=== PATIENT | male | born 1965 | race Caucasian/White ===

== ENCOUNTER → 2017-07-11 | Outpatient (CLI) | payer OTHER ==
[~2017-07-11] MED LIST: ALBUAER2; ATOR10TA88; LSN25; [UNRECOGNIZED DRUG - CODE]
== END | disposition home or self-care (01) ==
LOC: C.LAB 00:11
DX: Z02.83 Encounter for blood-alcohol and blood-drug test (principal)

== ENCOUNTER 2024-05-16 22:38 | Inpatient (IN) ==
--- OUTSIDE RECORDS SUMMARY | 2024-05-16 22:44 | External Medical Summary | Summary of Care ---
Author Name Unknown Organization [facility] Address [address] [place] [address] Phone [phone] Care Team Providers Care Hospital Account Liaison Name Role Phone Unavailable Primary Care Provider Unavailabl e Reason for Visit * Reason Comments eRx-Medication Refill Encounter Details Date Type Department Care Team (Late st Contact Info) Description 05/12/2024 Refill Pharmacy, [address] [address] Puneet Martinez, DO [address] [place] [address] Type 2 diabetes mellitus with hemoglobin A1c goal of less than 7.0% ([facility])* Allergies Active Allergy Reactions Criticality Noted Date Comments Penicillin V 09/11/2006 documented as of this encounter (statuses as of 05/12/2024) Medications Medication Sig Dispensed Refills Start Date End Date Status aspirin enteric coated 81 MG TBECIndications:Type 2 diabetes mellitus with hemoglobin A1c goal of less than 7.0% (HCC) Take 1 Tablet by mouth in the morning. 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 100 Each 11 1 Active OneTouch Ultra Blue In Vitro Strip (Glucose Blood)Indications:Ty pe 2 diabetes mellitus with both eyes affected by severe nonproliferative retinopathy and macular edema, without long-term current use of insulin ([facility]) Use as directed twice daily for glucose testing 100 Strip 3 1 Active FLUoxetine HCl 10 MG Oral Capsule (PROzac)Indications: Adjustment disorder with mixed anxiety and depressed mood Take 1 Capsule by mouth in the morning. 30 Capsule 11 3 Active Insulin Glargine Solostar 100 UNIT/ML Subcutaneous Solution Pen-injector (Lantus SoloStar)Indications :Type 2 diabetes mellitus with diabetic dermatitis, with long-term current use of insulin ([facility]) Inject 52 Units under the skin in the morning. Increase as directed by [facility] until blood glucose <150. Max dose 82 units daily. 75 mL 3 3 Active amLODIPine Besylate 5 MG Oral Tablet (Norvasc)Indications :HTN, goal below 130/80 TAKE 1 TABLET BY MOUTH IN THE MORNING. 90 Tablet 2 3 Active Albuterol Sulfate HFA 108 (90 Base) MCG/ACT Inhalation Aerosol SolutionIndications: Mild intermittent asthma without complication USE 2 INHALATIONS BY MOUTH EVERY 4 HOURS NEEDED FOR COUGH OR WHEEZING 51 g 2 4 Active Atorvastatin Calcium 10 MG Oral Tablet (Lipitor)Indications :Dyslipidemia, goal LDL below 100 Take 2 Tablets by mouth in the morning. 4 Active metFORMIN HCl 1000 MG Oral Tablet (Glucophage) TAKE 1 TABLET BY MOUTH TWICE DAILY WITH MORNING AND EVENING MEALS 180 Tablet 3 4 Active Vitamin D3 25 MCG (1000 UT) Oral Capsule (Cholecalciferol)Ind ications:Vitamin D deficiency Take 1 Capsule by mouth in the morning. 4 Active hydroCHLOROthiazide 25 MG Oral Tablet (Hydrodiuril)Indicat ions:HTN, goal below 130/80 TAKE 1 TABLET BY MOUTH DAILY 90 Tablet 1 4 Active Lisinopril 40 MG Oral TabletIndications:HT N, goal below 130/80 TAKE 1 TABLET BY MOUTH DAILY 90 Tablet 1 4 Active Ozempic (1 MG/DOSE) 4 MG/3ML Subcutaneous Solution Pen-injector (Semaglutide (1 MG/DOSE))Indications :Type 2 diabetes mellitus with hemoglobin A1c goal of less than 7.0% (HCC) INJECT 1 mg UNDER THE SKIN ONCE A WEEK 9 mL 4 4 Active Ozempic (1 MG/DOSE) 4 MG/3ML Subcutaneous Solution Pen-injector (Semaglutide (1 MG/DOSE))Indications :Type 2 diabetes mellitus with hemoglobin A1c goal of less than 7.0% (HCC) Inject 1 mg under the skin once a week. 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 Mild obstructive sleep apnea 03/10/2014 Overview: CPAP 9 cwp 05/2014 -- CPAP 8-15 cwp 03/18/14 -- CPAP 5-15 cwp NPSG AHI 6.5 HST AHI 9.0 [facility] Dermatophytosis of groin 12/12/2010 Mild intermittent asthma without complication Overview: Per Provider Protocol. Psoriasis 03/05/2010 Severe obesity with body mas s index (BMI) of 35.0 to 39.9 with serious comorbidity 01/29/2010 Overview: Per Obesity Taxonomy ICD-10 update of inactive diagnosis DYSLIPIDEMIA, GOAL LDL BELOW 100 10/17/2009 Overview: Per Lipid Taxonomy. 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 ICD-10 update of inactive term Other specified gastritis without mention of hem orrhage 05/03/2008 Overview: mild gastric irritation and benign gastric polyp Other allergic rhinitis 04/05/2008 Overview: ICD-10 update of inactive term ADVANCE DIRECTIVE INFORMATION 12/11/2006 Overview: Pt given info. documented as of this encounter (statuses as of 05/12/2024) Resolved Problems Problem Noted Date Diagnosed Date Resolved Date HTN, GOAL BELOW 140/80 06/22/201202/07 Overview: Per HTN Protocol #27. Asthma with severity to be determined 04/26/2010 12/11/2011 Overview: Per Asthma Taxonomy ICD-10 update of inactive term HTN, GOAL BELOW 130/80 11/29/200906/25 Overview: Per HTN Taxonomy. OBESITY, UNSPECIFIED 12/16/2006 010 Overview: Per Obesity Taxonomy Tobacco use disorder 12/11/2006 007 Ulcer of lower limb 09/11/2006 10/16/20 20 Type 2 diabetes mellitus wit h hemoglobin A1c goal of less than 7.0% 09/11/2006 08/31/2009 Overview: Per Diabetes Taxonomy. ICD-10 update of inactive term HTN, goal below 140/90 09/11/200611/29 Overview: Per HTN Taxonomy. PURE HYPERCHOLESTEROLEM 09/11/200610/03 Overview: Per Lipid Taxonomy. EXTRINSIC ASTHMA, UNSPEC 09/11/2006 documented as of this encounter (statuses as of 05/12/2024) Immunizations Name Administration Dates Next Due H1N1 2009 Influenza, IM 12/06/2009 Hepatitis B, 20+ yrs 10/16/2020,08/07/2017,07/03 Pneumococcal Conjugate Vacc, 13 Valent (Prevnar) 06/15/2018 Pneumococcal Polysaccharide PPV23 (Pneumovax) 10/09/2004 Seasonal Influenza, PF, 6 M & above, IM , (FluLaval or Fluzone) 09/01/2023,07/23/2022,10/15/2021,10/16,09/09/2019,12/04/2018,10/07/2017 Seasonal Influenza, Quadriva lent, No Preserve, IM 08/15/2016 Seasonal Influenza, Split, I IV3, With Preserve, Inj 07/20/2015,08/05/2014,08/03/2013,07/03,07/30/2011,08/24/2010,07/29/2009 ,08/08/2008,09/08/2007,09/03/2006 TD - Tetanus/Diptheria (ADULT) 08/16/2006 TDAP (age 10 and older)(Boostrix) 11/29/2022,02/2012 documented as of this encounter Social History Tobacco Use Types Packs/Day Years Used Date Smoking Tobacco: Former Cigarettes 0.5 15 0 11/13/1993 - 11/13/2008 Smokeless Tobacco: Never Alcohol Use Standard Drinks/Week Comments Yes 0 (1 standard drink = 0.6 oz pur e alcohol) occ PHQ-2 Answer Date Recorded PHQ Adult Total Score 0 07/23/2022 Hunger Vital Sign Answer Date Recorded Within the past 12 months, y ou worried that your food would run out before you got the money to buy more. Never true 07/23/20 22 Within the past 12 months, t he food you bought just didn't last and you didn't have money to get more. Never true 07/23/2022 Utilities Answer Date Recorded Do you have trouble paying y our heating, water, or electric bill? (Adult - for ages 18 years and over) Not on file 04/20/2024 Is your family able to pay t he heat, water, or electric bill? (Household - for ages 0-17 years) Not on file 04/20/2024 Does your family have access to good internet? (Household - for ages 0-17 years) Not on file 04/20/2024 Social Connections Answer Date Recorded How often do you feel lonely or isolated from those around you? (Adult - for ages 18 years and over) Not on file 04/20/2024 Sex and Gender Information Value Date Recorded Sex Assigned at Not on file Gender Identity Not on file Sexual Orientation Not on file Job Start Date Occupation Industry Not on file Not on file Not on file documented as of this encounter Miscellaneous Notes * Telephone Encounter - Fidel Nichole RPh - 05/12/2024 12:38 PM EDTSigned Prescriptions: Disp Refills Ozempic (1 MG/DOSE) 4 MG/3ML Subcutaneous *9 mL 4 Sig: INJECT 1mg UNDER THE SKIN ONCE A WEEKAuthorizing Provider: RADHA SUTHERLAND User: FIDEL HOBBS V * Telephone Encounter - Fidel Nichole RPh - 05/12/2024 12:35 PM EDT Did you pend patient's preferred pharmacy and medication before forwarding?no Pharmacy: [id number] Pending Prescriptions: Disp Refills Ozempic (1 MG/DOSE) 4 MG/3ML Subcutaneous*9 mL 0 Sig: INJECT 1 mg UNDER THE SKIN ONCE A WEEK Last Visit: 04/08/2023 (in office), 05/26/2023 (telemedicine) Next Visit: Visit date not found If no future appointments scheduled, and last appointment is greater than a year ago, please schedule patient for a follow-up appointment Last date the medication was ordered: 06/16/2023 Is this request for a controlled substance?No Urine Drug Screen:No results found for this or any previous visit. Patient Phone Numbers Labs: Lab Results Component Value Date/Time CREAT 1.32 (H) 05/06/2024 12:00 AM CREAT 1.0 10/12/2020 08:56 AM POTASSIUM 3.4 (L) 05/06/2024 12:00 AM POTASSIUM 4.0 10/12/2020 08:56 AM TSH 2.06 01/23/2024 06:59 AM TSH 1.22 06/17/2018 09:09 AM LDLCALC 48 07/23/2022 01:10 PM LDLCALC 50 10/12/2020 08:56 AM LDLDIRECT 83 01/23/2024 06:59 AM LDLDIRECT NOT APPLICABLE 10/12/2020 08:56 AM LDLDIRECT 87 10/07/2017 04:46 PM ALT 33 01/23/2024 06:59 AM ALT 14 06/17/2018 09:09 AM HGBA1C 6.9 (H) 01/23/2024 06:59 AM HGBA1C 11.8 (H) 04/08/2023 02:51 PM HGBA1C 8.1 (H) 10/12/2020 08:56 AM Fidel Hobbs RPh, CACP, CDE Clinical Pharmacist [facility] 05/12/2024, 12:35 PM documented in this encounter Plan of Treatment Upcoming Encounters Date Type Department Care Team (Late st Contact Info) Description 05/12/2024 1:40 PM EDT Office Visit [facility] [address] [place] [address] Bri Trujillo MD [address] [place] [address] 05/22/2024 8:20 AM EDT Office Visit [facility] [address] [facility] [place] [address] Radha Sutherland MD [address] [place] [address] 06/09/2024 9:15 AM EDT Office Visit Urology, [facility] [address] [place] [address] Mau Rodas MD [address] [place] [address] Health Maintenance Due Date Last Done Comments Starlauard 2012 Fecal Occult Blood Test 2012 Sigmoidoscopy 2012 Zoster Vaccines (1 of 2) 2017 COVID-19 Vaccine ( season) 2023 Depression Screening 07/23/2023 07/23/2022 Diabetic Eye Exam 06/30/2024 06/30/2023, , 05/30/2021, Additional history exists Influenza Vaccine (FLU shot) (#1) 2024 09/01/2023, 07/23/2022, 10/15/2021, Additional history exists HbA1c 07/25/2024 01/23/2024, 06/0 04/2023, 10/15/2022, Additional history exists Diabetic Foot Exam 09/15/2024 09/15/2023, 0 07/23/2022, 10/15/2021, Additional history exists B-12 01/22/2025 01/23/2024, 10/03, 10/10/2021, Additional history exists Albumin/Creatinine Ratio 02/16/2025 024, 01/23/2024, 07/23/2022, Additional history exists GFR 05/06/2025 05/06/2024, 02/01, 01/23/2024, Additional history exists Colonoscopy 07/20/2028 07/20/2018, 07/20/2018 Colorectal Cancer Screening 07/20/2028 Lipid Panel 01/22/2029 01/23/2024, 07/05, 10/10/2021, Additional history exists DTaP,Tdap,and Td Vaccines (3 - Td or Tdap) 11/29/2032 11/29/2022, 10/06/2012, 08/16/2006 Pneumococcal Vaccine: Pediatrics (0 to 5 Years) and At-Risk Patients (6 to 64 Years) (3 of 3 - PPSV23 or PCV20) 2032 06/15/2018, 10/09/2004 Hepatitis B Vaccine Completed 10/16/2020, 08/07/2017, 07/03/2017 HPV (Gardasil) Vaccine Aged Out No lo nger eligible based on patient's age to complete this topic MENINGOCOCCAL (MENACTRA/MENVEO) Aged Out No longer eligible based on patient's age to complete this topic documented as of this encounter Medical Devices Not on filedocumented as of this encounter Visit Diagnoses Diagnosis Type 2 diabetes mellitus with hemoglobin A1c goal of less than 7.0% (HCC)- Primary documented in this encounter
--- OUTSIDE RECORDS SUMMARY | 2024-05-16 22:44 | External Medical Summary | Summary of Care ---
Author Name Unknown Organization [facility] Address [address] [place] [address] Phone [phone] Care Team Providers Care Transportation Consultant Name Role Phone Unavailable Primary Care Provider Unavailabl e Reason for Visit * Reason Onset Date Comments Hospital Follow-Up Patient prese nts in office today for a hospital follow-up visit regarding B/L legs and feet swelling on 05/06 and 05/07 Hospital Follow-Up 05/12/2024 Encounter Details Date Type Department Care Team (Latest Contact Info) Description 05/12/2024 1:40 PM EDT [facility] [place] [address] [facility] [address] [facility] [address] Acute heart failure, unspecified heart failure type (HCC)*; Type 2 diabetes mellitus with both eyes affected by severe nonproliferative retinopathy and macular edema, without long-term current use of insulin (HCC); Proteinuria, unspecified type Allergies Active Allergy Reactions Criticality Noted Date Comments Penicillin V 09/11/2006 documented as of this encounter (statuses as of 05/14/2024) Medications Medication Sig Dispensed Refills Start Date End Date Status aspirin enteric coated 81 MG TBECIndications:Type 2 diabetes mellitus with hemoglobin A1c goal of less than 7.0% (HCC) Take 1 Tablet by mouth in the morning. 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 100 Each 11 10/15/2021 Active OneTouch Ultra Blue In Vitro Strip (Glucose Blood)Indications:Type 2 diabetes mellitus with both eyes affected by severe nonproliferative retinopathy and macular edema, without long-term current use of insulin (HCC) Use as directed twice daily for glucose testing 100 Strip 3 10/15/2021 Active FLUoxetine HCl 10 MG Oral Capsule (PROzac)Indications:Ad justment disorder with mixed anxiety and depressed mood Take 1 Capsule by mouth in the morning. 30 Capsule 11 11/29/2022 Active Insulin Glargine Solostar 100 UNIT/ML Subcutaneous Solution Pen-injector (Lantus SoloStar)Indications:T ype 2 diabetes mellitus with diabetic dermatitis, with long-term current use of insulin ([facility]) Inject 52 Units under the skin in the morning. Increase as directed by [facility] until blood glucose <150. Max dose 82 units daily. 75 mL 3 05/12/2023 Active amLODIPine Besylate 5 MG Oral Tablet (Norvasc)Indications:H TN, goal below 130/80 TAKE 1 TABLET BY MOUTH IN THE MORNING. 90 Tablet 2 08/06/2023 Active Albuterol Sulfate HFA 108 (90 Base) MCG/ACT Inhalation Aerosol SolutionIndications:Mi ld intermittent asthma without complication USE 2 INHALATIONS BY MOUTH EVERY 4 HOURS NEEDED FOR COUGH OR WHEEZING 51 g 2 12/20/2023 Active Atorvastatin Calcium 10 MG Oral Tablet (Lipitor)Indications:D yslipidemia, goal LDL below 100 Take 2 Tablets by mouth in the morning. 01/26/2024 Active metFORMIN HCl 1000 MG Oral Tablet (Glucophage) TAKE 1 TABLET BY MOUTH TWICE DAILY WITH MORNING AND EVENING MEALS 180 Tablet 3 02/08/2024 Active Vitamin D3 25 MCG (1000 UT) Oral Capsule (Cholecalciferol)Indic ations:Vitamin D deficiency Take 1 Capsule by mouth in the morning. 02/19/2024 Active hydroCHLOROthiazide 25 MG Oral Tablet (Hydrodiuril)Indicatio ns:HTN, goal below 130/80 TAKE 1 TABLET BY MOUTH DAILY 90 Tablet 1 03/16/2024 Active Lisinopril 40 MG Oral TabletIndications:HTN, goal below 130/80 TAKE 1 TABLET BY MOUTH DAILY 90 Tablet 1 03/16/2024 Active Ozempic (1 MG/DOSE) 4 MG/3ML Subcutaneous Solution Pen-injector (Semaglutide (1 MG/DOSE))Indications:T ype 2 diabetes mellitus with hemoglobin A1c goal of less than 7.0% (HCC) INJECT 1 mg UNDER THE SKIN ONCE A WEEK 9 mL 4 05/12/2024 Active Furosemide 20 MG Oral Tablet (Lasix)Indications:Acu te heart failure, unspecified heart failure type (HCC) Take 2 tabs by mouth for three days, then decrease to 1 tab by mouth daily. 30 Tablet 1 05/12/2024 Active documented as of this encounter (statuses as of 05/14/2024) Active Problems Problem Noted Date Diagnosed Date [...] as of this encounter (statuses as of 05/14/2024) Resolved Problems Problem Noted Date Diagnosed Date [...] as of this encounter (statuses as of 05/14/2024) Immunizations Name Administration Dates Next Due H1N1 [...] on file documented as of this encounter Last Filed Vital Signs Vital Sign Reading Time Taken Comments Blood Pressure 142/82 05/12/2024 1:38 PM EDT Pulse 107 05/12/2024 1:38 PM EDT Temperature - - Respiratory Rate 18 05/12/2024 1:38 PM EDT Oxygen Saturation 98% 05/12/2024 1:38 PM EDT Inhaled Oxygen Concentration - - Weight 116.6 kg (257 lb) 05/12/2024 1:38 PM EDT Height 175.3 cm (5' 9") 05/12/2024 1:38 PM EDT Body Mass Index 37.95 05/12/2024 1:38 PM EDT documented in this encounter Progress Notes * Bri Trujillo MD - 05/12/2024 1:51 PM EDT Images from the original note were not included. History of Present Illness Rad Heladio Kwok Jr. is a 58 year old male that presents for Hospital Follow-Up (Patient presents in office today for a hospital follow-up visit regarding B/L legs and feet swelling on 05/06 and 05/07) and Hospital Follow-Up Swelling started two weeks ago. Skin feels really tight, like has a sunburn. Was having trouble walking. AM sugars in the 180s. Lantus 60 units IV lasix didn't make urinate much Breathing been okay. No GI sx. No urinary sx. Nicotine: occasional vape Cannabis: none Alcohol: 2x/mo, amount is variable. Current medications and allergies reviewed. Past medical history and problem list reviewed. Physical Exam Vitals: 05/12/24 1338 Pulse: 107 Resp: 18 SpO2: 98% BP: 142/82 BMI: 37.93 BP Readings from Last 3 Encounters: 05/12/24 142/82 02/03/24 135/78 09/15/23 128/68 Wt Readings from Last 3 Encounters: 05/12/24 116.6 kg (257 lb) 02/03/24 120.9 kg (266 lb 9.6 oz) 09/15/23 123.8 kg (273 lb) Physical Exam Vitals and nursing note reviewed. Constitutional: Appearance: Normal appearance. He is not ill-appearing. HENT: Head: Normocephalic and atraumatic. Mouth/Throat: Mouth: Mucous membranes are moist. Eyes: General: No scleral icterus. Pupils: Pupils are equal, round, and reactive to light. Neck: Comments: No thyromegaly or nodules Cardiovascular: Rate and Rhythm: Normal rate and regular rhythm. Heart sounds: No murmur heard. Pulmonary: Effort: Pulmonary effort is normal. Breath sounds: No rales. Abdominal: General: Abdomen is flat. Bowel sounds are normal. There is no distension. Palpations: Abdomen is soft. There is no mass. Tenderness: There is no abdominal tenderness. There is no guarding or rebound. Hernia: No hernia is present. Musculoskeletal: Right lower leg: Edema present. Left lower leg: Edema present. Comments: Edema to knees b/l Lymphadenopathy: Cervical: No cervical adenopathy. Neurological: Mental Status: He is alert. Psychiatric: Mood and Affect: Mood normal. Behavior: Behavior normal. I have reviewed the following results: CMP, Hemoglobin A1C, TSH, CBC, Albumin / Creatinine Ratio, Urine, and Urinalysis, POC Assessment and Plan Acute heart failure, unspecified heart failure type (HCC) Clearly has some volume overload. Will see if we can make better improvement with consistent diuresis. May need higher doses given his CKD 3A and the significant proteinuria. Recheck electrolytes in 1 week. Has visit to establish care with Dr. Mora later this month. It will be a good time to reassess. - Furosemide 20 MG Oral Tablet (Lasix); Take 2 tabs by mouth for three days, then decrease to 1 tabby mouth daily. 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 excluding any time spent in the performance of separately billed services. documented in this encounter Nursing Notes * Vivian Smith MED ASSIST - 05/12/2024 1:36 PM EDT The patient has been properly identified by confirmation of name and date of . Chief Complaint Patient presents with Hospital Follow-Up Patient presents in office today for a hospital follow-up visit regarding B/L legs and feet swelling on 05/06 and 05/07 documented in this encounter Plan of Treatment Upcoming Encounters Date Type Department Care Team (Late st Contact Info) Description 05/22/2024 8:20 AM EDT Office Visit Family Practice [facility] [address] [facility] [place] [address] Birdie Mora MD [address] [place] [facility] [place] [address] 06/09/2024 9:15 AM EDT Office Visit Urology, [facility] [address] [facility] [place] [address] Mau Rodas MD [address] [place] [address] Scheduled Orders Name Type Priority Associated Diagnoses Orde r Schedule BASIC METABOLIC PANEL Lab Routine Acute heart failure, unspecified heart failure type (HCC) Expected: 05/19/2024, Expires: 05/12/2025 Health Maintenance Due Date Last Done Comments Cologuard 2012 Fecal Occult Blood Test 2012 Sigmoidoscopy 2012 Zoster Vaccines (1 of 2) 2017 COVID-19 Vaccine ( - season) 2023 Depression Screening 07/23/2023 07/23/2022 Diabetic [...] as of this encounter Visit Diagnoses Diagnosis Acute heart failure, unspecified heart failure type (HCC)- Primary Type 2 diabetes mellitus with both eyes affected by severe nonproliferative retinopathy and macular edema, without long-term current use of insulin (HCC) Proteinuria, unspecified type documented in this encounter
[2024-05-16 23:31] LABS: Albumin Globulin Ratio 1.5 (0.9-2); Albumin Level 3.8 gm/dl (3.4-5.0); BUN Creatinine Ratio 14.1 (10-20); Bilirubin,Total 0.6 mg/dl (0.2-1.0); Calcium 9.3 mg/dl (8.6-10.3); Est GFR (African American) 34.7 ml/min; Globulin 2.5 gm/dl (2.5-4.0); Potassium 2.9 mmol/L (3.5-5.1); Total Protein 6.3 gm/dl (6.0-8.3)
[2024-05-16 23:49] LABS: Basophils # (auto) 0.08 K/uL (0.00-0.20); Basophils % (auto) 1.1 %; Eosinophils # (auto) 0.17 K/uL (0.00-0.50); Eosinophils % (auto) 2.4 %; Hematocrit (blood only) 38.2 % (42.0-52.0); Hemoglobin 13.3 g/dl (14.0-18.0); Immature Granulocytes # (auto) 0.06 K/uL (0.01-0.20); Immature Granulocytes % (auto) 0.8 %; Lymphocytes # (auto) 1.17 K/uL (1.20-3.40); Lymphocytes % (auto) 16.3 %; Mean Corpuscular Hemoglobin 31.1 pg (25.0-34.0); Mean Corpuscular Hgb Conc 34.8 g/dL (32.0-36.0); Mean Corpuscular Volume 89.5 fL (80.0-100.0); Mean Platelet Volume 9.5 fL (9.4-12.4); Monocytes # (auto) 0.74 K/uL (0.11-0.59); Monocytes % (auto) 10.3 %; Neutrophils # (auto) 4.94 K/uL (1.40-6.50); Neutrophils % (auto) 69.1 %; Platelet Count 217 K/uL (130-400); RDW Standard Deviation 45.3 fL (36.4-46.3); Red Blood Count 4.27 M/uL (4.70-6.10); White Blood Count 7.16 K/ul (4.8-10.8)
--- NOTE | 2024-05-16 23:56 | Emergency Department Note ---
History of Present Illness General Chief complaint: Pain (Generalized) Stated complaint: GEN PAIN Time Seen by Provider: 05/16/24 23:38 History of Present Illness Maximum Pain Intensity: 10 This is a 58-year-old male presenting to the emergency department for evaluation of generalized pain. Patient states that he was seen last week with similar symptoms. Patient does not have distinct point tenderness anywhere. He essentially describes full body pain. He does not identify aggravating or alleviating factors. Sometimes his back may hurt more than other places. No falls, injuries, or traumas. Symptoms started to worsen after 06 May. He essentially presents to the ER tonight due to persistence of pain that he rates a /. Home Medications Medication Instructions Recorded Confirmed Type insulin glargine 100 unit/mL 60 unit subcut QAM 02/23/19 05/17/24 History subcutaneous solution (Lantus U-100 Insulin) atorvastatin 10 mg tablet 10 mg PO DAILY 05/07/24 05/17/24 History hydrochlorothiazide 25 mg tablet 25 mg PO DAILY 05/07/24 05/17/24 History lisinopril 40 mg tablet 40 mg PO DAILY 05/07/24 05/17/24 History metformin 1,000 mg tablet 1,000 mg PO BIDM 05/07/24 05/17/24 History albuterol sulfate 90 mcg/actuation 2 puff inhalation Q4 PRN Shortness 05/17/24 05/17/24 History aerosol inhaler Of Breath Or Wheezing amlodipine 5 mg tablet 5 mg PO DAILY 05/17/24 05/17/24 History aspirin 81 mg tablet,delayed 81 mg PO DAILY 05/17/24 05/17/24 History release fluoxetine 10 mg capsule 10 mg PO QAM 05/17/24 05/17/24 History furosemide 20 mg tablet (Lasix) 20 mg PO DAILY 05/17/24 05/17/24 History semaglutide 1 mg/dose (4 mg/3 mL) 1 mg subcut WK 05/17/24 05/17/24 History subcutaneous pen injector (Ozempic) Allergies Allergy/AdvReac Type Severity Reaction Status Date / Time Penicillins Allergy Intermediate SWELLING Verified 05/07/24 16:34 OF FACE Past Med/Surg History Problem List (Updated 05/17/24 @ 21:15 by Sudhir Farfan PA-C) Elevated troponin (Acute) Elevated CK (Acute) SHAHRIAR (acute kidney injury) (Acute) Generalized pain (Acute) Hypertensive crisis Asymptomatic hypertensive urgency HTN (hypertension) (Acute) Back pain (Acute) Edema (Acute) Surgical History No significant past surgical history Social History Smoking Status: Current some day smoker Tobacco Type: E-cigarettes / Vaping Second Hand Exposure: Yes; Hx Alcohol Use: Yes Preferred Language: Kazakh Communication Ability: Effective Digital Commentator Required: No Beliefs That Will Affect Care: None Current Living Situation: Family Feels Safe at Home: Yes Assistive Devices: None Review of Systems A total of 10 systems reviewed and were otherwise negative Physical Exam Vital Signs Vital Signs - 24 hr 05/16/24 22:41 05/16/24 23:00 05/16/24 23:30 Temperature 36.4 C Temperature Source Oral Pulse Rate 97 H Pulse Rate [Apical] 91 H 91 H Pulse Rhythm [Apical] Regular Regular Pulse Strength [Apical] Normal Normal Respiratory Rate 18 20 24 Respiratory Effort / Characteristics Non-Labored Spontaneous Non-Labored Spontaneous Non-Labored Spontaneous Respiratory Depth Normal Normal Normal Respiratory Pattern Regular Regular Blood Pressure 185/98 H Blood Pressure [Right Arm] 143/116 H 149/81 H Blood Pressure Mean 127 Blood Pressure Mean [Right Arm] 125 103 Blood Pressure Position [Right Arm] Lying Lying Pulse Oximetry 98 99 97 Oxygen Delivery Method Room Air Room Air Room Air Sepsis Recent Fever Within 48 Hours No Sepsis New/Unexplained Change in Mental Status No Sepsis Action Taken by Nursing No Action Required 05/16/24 23:41 05/17/24 01:00 05/17/24 01:41 Temperature Temperature Source Pulse Rate 91 H 97 H Pulse Rate [Apical] 99 H Pulse Rhythm [Apical] Pulse Strength [Apical] Respiratory Rate 19 Respiratory Effort / Characteristics Non-Labored Spontaneous Respiratory Depth Normal Respiratory Pattern Regular Blood Pressure 188/110 H Blood Pressure [Right Arm] 201/100 H Blood Pressure Mean Blood Pressure Mean [Right Arm] 133 Blood Pressure Position [Right Arm] Pulse Oximetry 99 Oxygen Delivery Method Room Air Sepsis Recent Fever Within 48 Hours Sepsis New/Unexplained Change in Mental Status Sepsis Action Taken by Nursing VITALS: Vitals are noted on the nurse's note and reviewed by myself. Vital signs stable. GENERAL: Well-developed, well-nourished, white male, who is in no acute distress and resting comfortably. Patient is cooperative with the examination. HEAD: Normocephalic atraumatic. NECK: Supple without nuchal rigidity. No lymphadenopathy. No thyromegaly. Cervical spine is nontender. HEART: Regular rate and rhythm without murmurs gallops or rubs. LUNGS: Clear to auscultation bilaterally without wheezes, rales or rhonchi. No retractions or accessory muscle use. ABDOMEN: Positive normal bowel sounds x 4. Soft, nontender, without masses or organomegaly. No guarding or rebound tenderness. MUSCULOSKELETAL: No muscle atrophy, erythema, or edema noted. Full range of motion in all extremities. NEURO: Patient was alert and oriented to person place and time. CN II through XII grossly intact. No focal neurological deficits. SKIN: The skin was without rashes, erythema, edema, or bruising. Capillary refill less than 2 seconds. Course Administered Medications Acetaminophen (Acetaminophen 325 Mg Tab) 650 mg PO QID PRN PRN Reason: pain/fever Stop: 06/16/24 02:06 Last Admin: 05/17/24 08:24 Dose: 650 mg Documented By: JOY Aspirin (Aspirin 81 Mg Ectab) 81 mg PO DAILY [facility] Stop: 06/16/24 08:59 Last Admin: 05/17/24 08:15 Dose: 81 mg Documented By: JOY Cyclobenzaprine HCl (Cyclobenzaprine Hcl 5 Mg Tab) 5 mg PO TID PRN PRN Reason: spams Stop: 06/16/24 13:59 Last Admin: 05/17/24 12:10 Dose: 5 mg Documented By: JOY Fluoxetine HCl (Fluoxetine Hcl 10 Mg Cap) 10 mg PO QAM [facility] Stop: 06/16/24 08:59 Last Admin: 05/17/24 08:15 Dose: 10 mg Documented By: JOY Heparin Sodium (Porcine) (Heparin Sod 5,000 Unit/0.5 Ml Vial) 5,000 units SQ Q8 [facility] Stop: 06/16/24 05:59 Last Admin: 05/17/24 14:46 Dose: 5,000 units Documented By: Admin: 05/17/24 05:12 Dose: 5,000 units Documented By: LAVERNE Hydromorphone HCl (Hydromorphone Inj 0.5 Mg/0.5 Ml Syr) 0.25 mg IV Q6H PRN PRN Reason: Severe Pain (Scale 7, 8, 9,10) Stop: 05/31/24 15:48 Last Admin: 05/17/24 16:07 Dose: 0.25 mg Documented By: JOY Lorazepam 0.5 mg/ Syringe 0.5 mls @ 2 mls/min IV Q4H PRN PRN Reason: Anxiety/Agitation Stop: 06/16/24 02:11 Last Admin: 05/17/24 11:13 Dose: 2 mls/min Documented By: JOY Insulin Aspart (Insulin Aspart Per Unit Charge) 0 units SC ACHS [facility] Stop: 06/16/24 04:20 Last Admin: 05/17/24 17:10 Dose: 7 units Documented By: JOY Co-signed By: TIM Admin: 05/17/24 12:32 Dose: 6 units Documented By: JOY Co-signed By: JAMIE Admin: 05/17/24 05:11 Dose: 3 units Documented By: LAVERNE Co-signed By: MATHEW Insulin Glargine (Lantus Per Unit Charge) 40 units SQ DAILY [facility] Stop: 06/16/24 08:59 Last Admin: 05/17/24 08:15 Dose: 40 units Documented By: JOY Co-signed By: KAMILLE Labetalol HCl (Labetalol Hcl Iv 5 Mg/Ml 20ml) 10 mg IV Q4H PRN PRN Reason: SBP > 170 mmHg Stop: 06/16/24 15:49 Last Admin: 05/17/24 20:04 Dose: 10 mg Documented By: JOY Co-signed By: ARNULFO Admin: 05/17/24 16:07 Dose: 10 mg Documented By: JOY Co-signed By: CNB Lisinopril (Lisinopril 40 Mg Tab) 40 mg PO HS [facility] Stop: 06/16/24 20:59 Last Admin: 05/17/24 20:47 Dose: 40 mg Documented By: JOY Melatonin (Melatonin 3 Mg Tab) 6 mg PO HS PRN PRN Reason: Sleep Stop: 06/16/24 03:19 Last Admin: 05/17/24 20:47 Dose: 6 mg Documented By: Admin: 05/17/24 03:45 Dose: 6 mg Documented By: CRISS Oxycodone HCl (Oxycodone Hcl Ir 5 Mg Tab (Immediate Release)) 5 - 10 mg PO QID PRN PRN Reason: Pain Stop: 05/31/24 04:50 Last Admin: 05/17/24 20:46 Dose: 10 mg Documented By: Admin: 05/17/24 14:46 Dose: 10 mg Documented By: Admin: 05/17/24 09:02 Dose: 10 mg Documented By: JOY Discontinued Medications Amlodipine Besylate (Amlodipine Besylate 5 Mg Tab) 2.5 mg PO NOW ONE Stop: 05/17/24 02:15 Last Admin: 05/17/24 02:37 Dose: 2.5 mg Documented By: LISA Amlodipine Besylate (Amlodipine Besylate 5 Mg Tab) 2.5 mg PO NOW ONE Stop: 05/17/24 04:10 Last Admin: 05/17/24 05:12 Dose: 2.5 mg Documented By: LAVERNE Amlodipine Besylate (Amlodipine Besylate 5 Mg Tab) 5 mg PO NOW ONE Stop: 05/17/24 06:01 Last Admin: 05/17/24 05:53 Dose: 5 mg Documented By: LAVERNE Sodium Chloride (Nss) 1,000 mls @ 999 mls/hr IV .Q1H1M [facility] Stop: 05/17/24 00:45 Last Infusion: 05/17/24 01:06 Dose: Infused Documented By: Admin: 05/17/24 00:05 Dose: 999 mls/hr Documented By: LISA Acetaminophen (Ofirmev) 1,000 mg in 100 mls @ 400 mls/hr IV NOW STA Stop: 05/17/24 02:31 Last Infusion: 05/17/24 02:55 Dose: Infused Documented By: Admin: 05/17/24 02:39 Dose: 400 mls/hr Documented By: LISA Lorazepam 0.5 mg/ Syringe 0.5 mls @ 2 mls/min IV NOW STA Stop: 05/17/24 02:17 Last Admin: 05/17/24 02:39 Dose: 2 mls/min Documented By: LISA Thiamine HCl 100 mg/ Syringe 10 mls @ 2 mls/min IV NOW STA Stop: 05/17/24 02:21 Last Admin: 05/17/24 02:40 Dose: 2 mls/min Documented By: LISA Potassium Chloride/Sodium Chloride (Normal Saline W/20 Meq Kcl) 20 meq in 1,000 mls @ 60 mls/hr IV .[id number] ONE; Protocol Stop: 05/17/24 19:05 Last Infusion: 05/17/24 20:54 Dose: Infused Documented By: Admin: 05/17/24 03:05 Dose: 60 mls/hr Documented By: CRISS Labetalol HCl (Labetalol Hcl Iv 5 Mg/Ml 20ml) 10 mg IV NOW STA Stop: 05/17/24 01:29 Last Admin: 05/17/24 01:41 Dose: 10 mg Documented By: EMB Co-signed By: CRISS Labetalol HCl (Labetalol Hcl Iv 5 Mg/Ml 20ml) 10 mg IV NOW STA Stop: 05/17/24 04:10 Last Admin: 05/17/24 04:29 Dose: 10 mg Documented By: CLC Co-signed By: MARIA ALEJANDRA Oxycodone HCl (Oxycodone Hcl Ir 5 Mg Tab (Immediate Release)) 5 mg PO Q4H PRN PRN Reason: Pain Stop: 05/31/24 02:06 Last Admin: 05/17/24 02:37 Dose: 5 mg Documented By: LISA Oxycodone HCl (Oxycodone Hcl Ir 5 Mg Tab (Immediate Release)) 5 mg PO NOW STA Stop: 05/17/24 04:47 Last Admin: 05/17/24 04:57 Dose: 5 mg Documented By: CLC Potassium Chloride (Potassium Chloride Pwd 20 Meq Pack) 40 meq PO NOW STA Stop: 05/17/24 01:30 Last Admin: 05/17/24 01:41 Dose: 40 meq Documented By: LISA Potassium Chloride (Potassium Chloride Pwd 20 Meq Pack) 40 meq PO ONE ONE Stop: 05/17/24 03:31 Last Admin: 05/17/24 03:14 Dose: 40 meq Documented By: CRISS Potassium Chloride (Potassium Chloride Crtab 20 Meq Tabcr) 40 meq PO NOW STA Stop: 05/17/24 08:01 Last Admin: 05/17/24 08:14 Dose: 40 meq Documented By: JOY Medical Decision Making Differential Diagnosis Differential diagnosis: Etiologies such as chronic pain, sepsis, UTI, pneumonia, bacteremia, metabolic process, electrolyte abnormalities, cardiac sources, intracerebral event, intra- abdominal process, toxicological process, neurologic process, as well as others were entertained. Laboratory Data 05/17/24 05:59 05/17/24 05:59 Lab Results 05/16/24 05/16/24 05/16/24 Range/Units 22:45 22:54 23:04 WBC 7.16 (4.8-10.8) K/ul RBC 4.27 L (4.70-6.10) M/uL Hgb 13.3 L (14.0-18.0) g/dl Hct 38.2 L (42.0-52.0) % MCV 89.5 (80.0-100.0) fL MCH 31.1 (25.0-34.0) pg MCHC 34.8 (32.0-36.0) g/dL RDW Std Deviation 45.3 (36.4-46.3) fL RDW Coeff of Garcia 14.0 (11.5-14.5) % Plt Count 217 (130-400) K/uL MPV 9.5 (9.4-12.4) fL Immature Gran % (Auto) 0.8 % Neut % (Auto) 69.1 % Lymph % (Auto) 16.3 % Anderson % (Auto) 10.3 % Eos % (Auto) 2.4 % Baso % (Auto) 1.1 % Neut # (Auto) 4.94 (1.40-6.50) K/uL Lymph # (Auto) 1.17 L (1.20-3.40) K/uL Anderson # (Auto) 0.74 H (0.11-0.59) K/uL Eos # (Auto) 0.17 (0.00-0.50) K/uL Baso # (Auto) 0.08 (0.00-0.20) K/uL Immature Gran # (Auto) 0.06 (0.01-0.20) K/uL PT 10.2 (9.0-12.0) Seconds INR 0.9 (0.9-1.1) APTT 30 (21-31) Seconds PTT Ratio 1.1 Sodium 139 (136-145) mmol/L Potassium 2.9 L (3.5-5.1) mmol/L Chloride 101 (98-107) mmol/L Carbon Dioxide 28 (21-32) mmol/L Anion Gap 10 (3-11) BUN 33 H (6-23) mg/dl Creatinine 2.34 H (0.6-1.4) mg/dl Est Cr Clr Drug Dosing 43.0 ml/min Est GFR ( Amer) 34.7 ml/min Est GFR (Non-Af Amer) 30.0 ml/min BUN/Creatinine Ratio 14.1 (10-20) Glucose 189 H (70-99(Fasting)) mg/dl Estimat Average Glucose 120 mg/dl Hemoglobin A1c 5.8 H (4.5-5.6) % Calcium 9.3 (8.6-10.3) mg/dl Magnesium 2.1 (1.7-2.4) mg/dl Total Bilirubin 0.6 (0.2-1.0) mg/dl AST 44 H (13-39) U/L ALT 42 (7-52) U/L Alkaline Phosphatase 53 (34-104) U/L Total Creatine Kinase 632 H (30-223) U/L Troponin I High Sens 37.7 H (0-20) pg/ml Total Protein 6.3 (6.0-8.3) gm/dl Albumin 3.8 (3.4-5.0) gm/dl Globulin 2.5 (2.5-4.0) gm/dl Albumin/Globulin Ratio 1.5 (0.9-2) Lipase 29 (11-82) U/L TSH 0.902 (0.300-4.500) uIu/ml Urine Color Urine Appearance (Clear) Urine pH (4.5-7.5) Ur Specific [place] (1.000-1.030) Urine Protein (Negative) Urine Glucose (UA) (Negative) Urine Ketones (Negative) Urine Blood (Negative) Urine Nitrite (Negative) Urine Bilirubin (Negative) Urine Urobilinogen (Negative) Ur Leukocyte Esterase (Negative) Urine WBC (Auto) (0-5) /hpf Urine RBC (Auto) (0-2) /hpf U Hyaline Cast (Auto) (0-2) /lpf U Epithel Cells (Auto) (0-2) /hpf Urine Bacteria (Auto) (None Seen) Ur Renal Epithelial Cell (None Presnt) /lpf WBC Casts (None Prsent) /lpf Urine Opiates Screen (Neg) Ur Methadone, Qual (Neg) Urine Fentanyl Screen (Neg) Urine Barbiturates (Neg) Ur Phencyclidine (PCP) (Neg) U Amphetamin/Meth Scrn (Neg) MDMA (Ecstasy) Screen (Neg) U Benzodiazepines Scrn (Neg) Ur Cocaine Metabolite (Neg) U Marijuana (THC) Screen (Neg) Ethyl Alcohol mg/dL < 10.0 (<10.0) mg/dl Adenovirus (PCR) Not Detected (NotDetected) B. pertussis DNA (PCR) Not Detected (NotDetected) B.parapertussis DNA PCR Not Detected (NotDetected) Lyme Disease Screen (Negative) C. pneumoniae DNA (PCR) Not Detected (NotDetected) Coronavirus OC43 (PCR) Not Detected (NotDetected) Coronavirus HKU1 (PCR) Not Detected (NotDetected) Coronavirus 229E (PCR) Not Detected (NotDetected) SARS-CoV-2 (PCR) Not Detected (NotDetected) Coronavirus NL63 (PCR) Not Detected (NotDetected) Human Metapneumovir PCR Not Detected (NotDetected) Influenza Type A (PCR) Not Detected (NotDetected) Influenza Type B (PCR) Not Detected (NotDetected) M. pneumoniae (PCR) Not Detected (NotDetected) Parainfluenza 1 (PCR) Not Detected (NotDetected) Parainfluenza 2 (PCR) Not Detected (NotDetected) Parainfluenza 3 (PCR) Not Detected (NotDetected) Parainfluenza 4 (PCR) Not Detected (NotDetected) RSV (PCR) Not Detected (NotDetected) Entero/Rhino (PCR) Not Detected (NotDetected) 05/17/24 Range/Units 00:05 WBC (4.8-10.8) K/ul RBC (4.70-6.10) M/uL Hgb (14.0-18.0) g/dl Hct (42.0-52.0) % MCV (80.0-100.0) fL MCH (25.0-34.0) pg MCHC (32.0-36.0) g/dL RDW Std Deviation (36.4-46.3) fL RDW Coeff of Garcia (11.5-14.5) % Plt Count (130-400) K/uL MPV (9.4-12.4) fL Immature Gran % (Auto) % Neut % (Auto) % Lymph % (Auto) % Anderson % (Auto) % Eos % (Auto) % Baso % (Auto) % Neut # (Auto) (1.40-6.50) K/uL Lymph # (Auto) (1.20-3.40) K/uL Anderson # (Auto) (0.11-0.59) K/uL Eos # (Auto) (0.00-0.50) K/uL Baso # (Auto) (0.00-0.20) K/uL Immature Gran # (Auto) (0.01-0.20) K/uL PT (9.0-12.0) Seconds INR (0.9-1.1) APTT (21-31) Seconds PTT Ratio Sodium (136-145) mmol/L Potassium (3.5-5.1) mmol/L Chloride (98-107) mmol/L Carbon Dioxide (21-32) mmol/L Anion Gap (3-11) BUN (6-23) mg/dl Creatinine (0.6-1.4) mg/dl Est Cr Clr Drug Dosing ml/min Est GFR ( Amer) ml/min Est GFR (Non-Af Amer) ml/min BUN/Creatinine Ratio (10-20) Glucose (70-99(Fasting)) mg/dl Estimat Average Glucose mg/dl Hemoglobin A1c (4.5-5.6) % Calcium (8.6-10.3) mg/dl Magnesium (1.7-2.4) mg/dl Total Bilirubin (0.2-1.0) mg/dl AST (13-39) U/L ALT (7-52) U/L Alkaline Phosphatase (34-104) U/L Total Creatine Kinase (30-223) U/L Troponin I High Sens (0-20) pg/ml Total Protein (6.0-8.3) gm/dl Albumin (3.4-5.0) gm/dl Globulin (2.5-4.0) gm/dl Albumin/Globulin Ratio (0.9-2) Lipase (11-82) U/L TSH (0.300-4.500) uIu/ml Urine Color Yellow Urine Appearance Cloudy A (Clear) Urine pH 5.5 (4.5-7.5) Ur Specific [place] 1.030 (1.000-1.030) Urine Protein 4+ H (Negative) Urine Glucose (UA) Trace H (Negative) Urine Ketones Trace H (Negative) Urine Blood 1+ H (Negative) Urine Nitrite Negative (Negative) Urine Bilirubin Negative (Negative) Urine Urobilinogen Negative (Negative) Ur Leukocyte Esterase Negative (Negative) Urine WBC (Auto) 6-10 H (0-5) /hpf Urine RBC (Auto) 0-2 (0-2) /hpf U Hyaline Cast (Auto) >20 H (0-2) /lpf U Epithel Cells (Auto) >20 H (0-2) /hpf Urine Bacteria (Auto) None Seen (None Seen) Ur Renal Epithelial Cell Present A (None Presnt) /lpf WBC Casts Present A (None Prsent) /lpf Urine Opiates Screen Pos H (Neg) Ur Methadone, Qual Neg (Neg) Urine Fentanyl Screen Neg (Neg) Urine Barbiturates Neg (Neg) Ur Phencyclidine (PCP) Neg (Neg) U Amphetamin/Meth Scrn Neg (Neg) MDMA (Ecstasy) Screen Neg (Neg) U Benzodiazepines Scrn Neg (Neg) Ur Cocaine Metabolite Neg (Neg) U Marijuana (THC) Screen Neg (Neg) Ethyl Alcohol mg/dL (<10.0) mg/dl Adenovirus (PCR) (NotDetected) B. pertussis DNA (PCR) (NotDetected) B.parapertussis DNA PCR (NotDetected) Lyme Disease Screen Negative (Negative) C. pneumoniae DNA (PCR) (NotDetected) Coronavirus OC43 (PCR) (NotDetected) Coronavirus HKU1 (PCR) (NotDetected) Coronavirus 229E (PCR) (NotDetected) SARS-CoV-2 (PCR) (NotDetected) Coronavirus NL63 (PCR) (NotDetected) Human Metapneumovir PCR (NotDetected) Influenza Type A (PCR) (NotDetected) Influenza Type B (PCR) (NotDetected) M. pneumoniae (PCR) (NotDetected) Parainfluenza 1 (PCR) (NotDetected) Parainfluenza 2 (PCR) (NotDetected) Parainfluenza 3 (PCR) (NotDetected) Parainfluenza 4 (PCR) (NotDetected) RSV (PCR) (NotDetected) Entero/Rhino (PCR) (NotDetected) Imaging Data Radiologist's Impression: Chest X-Ray 05/17/24 01:31 XR chest 1V portable CLINICAL HISTORY: renal failure TECHNIQUE: Single frontal radiograph of the chest was obtained. Comparison: Comparison is made to chest radiograph 05/07/2024 FINDINGS: No lines and tubes are seen. The cardiomediastinal silhouette is stable. The lungs are clear. No evidence of pleural effusion or pneumothorax. IMPRESSION: No acute chest disease. ACT 112: Negative or not required by law. Electronically signed by: Waylon Fernández M.D. 05/17/2024 7:19 AM Abdomen/Pelvis CT 05/17/24 02:05 Exam(s): CT ABDOMEN + PELVIS Without Contrast EXAM: CT Abdomen and Pelvis Without Intravenous Contrast CLINICAL HISTORY: Reason for exam: back pain. TECHNIQUE: Axial computed tomography images of the abdomen and pelvis without intravenous contrast. CTDI is 27.95 mGy and DLP is 2494.84 mGy-cm. Automated exposure control was utilized for the study. A dose lowering technique was utilized adhering to the principles of ALARA. COMPARISON: CT abdomen and pelvis May 07, 2024. FINDINGS: Lung bases: Unremarkable. No mass. No consolidation. ABDOMEN: Liver: Unremarkable. Gallbladder and bile ducts: Unremarkable. No calcified stones. No ductal dilation. Pancreas: Unremarkable. No ductal dilation. Spleen: Enlarged spleen, measures 17 cm. Adrenals: Unremarkable. No mass. Kidneys and ureters: No hydronephrosis, nephrolithiasis, or obstructive uropathy. Trace, stable bilateral perinephric stranding. Stomach and bowel: Diverticulosis, without acute diverticulitis. No small bowel obstruction. No free intraperitoneal air. PELVIS: Appendix: No findings to suggest acute appendicitis. Bladder: Unremarkable. No stones. Reproductive: Unremarkable as visualized. ABDOMEN and PELVIS: Intraperitoneal space: Unremarkable. No free air. No significant fluid collection. Bones/joints: Degenerative changes of the spine. No acute fracture. No dislocation. Soft tissues: Unremarkable. Vasculature: Atherosclerotic changes of the aorta. No abdominal aortic aneurysm. Lymph nodes: Unremarkable. No enlarged lymph nodes. IMPRESSION: 1. No hydronephrosis, nephrolithiasis, or obstructive uropathy. Trace, stable bilateral perinephric stranding. 2. Diverticulosis, without acute diverticulitis. No small bowel obstruction. No free intraperitoneal air. Electronically signed by: Manuel Castañeda MD 05/17/24 04:[address] 05/17/24 02:05 Exam(s): CT CHEST Without Contrast EXAM: CT Chest Without Intravenous Contrast CLINICAL HISTORY: Reason for exam: back pain. TECHNIQUE: Axial computed tomography images of the chest without intravenous contrast. CTDI is 27.95 mGy and DLP is 2494.84 mGy-cm. Automated exposure control was utilized for the study. A dose lowering technique was utilized adhering to the principles of ALARA. COMPARISON: No relevant prior studies available. FINDINGS: LUNGS: No focal consolidation, pleural effusion, or pneumothorax. HEART: Within normal limits. VASCULATURE: Within normal limits without contrast. THYROID: Within normal limits. MEDIASTINUM + LYMPH NODES: There are no pathologically enlarged mediastinal, hilar, or axillary lymph nodes. SUPERIOR ABDOMEN: The included portions of the superior abdomen are within normal limits. MUSCULOSKELETAL: Within normal limits. IMPRESSION: No focal infiltrate, pleural effusion, or pneumothorax. Electronically signed by: Manuel Castañeda MD 05/17/24 04:00 AM MDM Narrative Physical exam and history were performed. Nursing notes, EMR, and Medication List were personally reviewed. No social concerns were identified as barriers to patients care. Patient appears to have generalized pain bringing him to the ER. Patient seems unable to categorize where he is having pain and what his aggravating or alleviating factors are. He is quite fixated on pain medication, and has ringing his call aparicio 6 times in 30 minutes requesting pain control. On examination he is slightly hypertensive but does not seem otherwise in any discomfort. His physical exam is fairly unremarkable. IV access was established and labs were obtained. He was hydrated with normal saline. Patient's blood work is as above and was reviewed. He does not have a significantly elevated white blood cell count or gross anemia. No significant electrolyte imbalance. Total CK is over 600, and there may be an element of rhabdo causing his generalized discomfort. His troponin is also elevated at 37, and his creatinine seems to have increased over 2. When compared to labs last week this is a distinct increase in his kidney function. The patient was updated regarding his findings and given additional IV fluids. Escalation of care is felt to be necessary. The case was discussed with the on- call hospitalist who agreed to evaluate the patient here in the ER. Please see their dictation for further patient course, plan, and disposition. The chart was completed utilizing [employer] Speech Voice Recognition Software. Grammatical errors, random word insertions, pronoun errors, and incomplete sentences are an occasional consequence of this system due to software limitations, ambient noise, and hardware issues. Any formal questions or concerns about the content, text, or information contained within the body of this dictation should be directly addressed to the provider for clarification. . Impression & Plan Generalized pain, SHAHRIAR (acute kidney injury), Elevated CK, Elevated troponin Discharge Plan Visit Data Chief Complaint: Pain (Generalized) Stated Complaint: GEN PAIN ED Provider: Lorraine Panda ED Midlevel Provider: Sudhir Farfan Discharge Problem: Generalized pain, SHAHRIAR (acute kidney injury), Elevated CK, Elevated troponin Patient Disposition: Admitted As Inpatient Discharge Instructions Interventions: ED Discharge Assessment Last Done: 05/17/24 04:04
[2024-05-17] MEDS: SODIUM CHLORIDE 0.9% 1,000 ML IV SCH (00:05)
[2024-05-17 00:10] LABS: Adenovirus PCR Not Detected (NotDetected); Bordetella parapertussis PCR Not Detected (NotDetected); Bordetella pertussis PCR Not Detected (NotDetected); Chlamydia pneumoniae PCR Not Detected (NotDetected); Coronavirus 229E PCR Not Detected (NotDetected); Coronavirus CoV-2 (COVID19)PCR Not Detected (NotDetected); Coronavirus HKU1 PCR Not Detected (NotDetected); Coronavirus NL63 PCR Not Detected (NotDetected); Coronavirus OC43PCR Not Detected (NotDetected); Human Metapneumovirus PCR Not Detected (NotDetected); Influenza A PCR Not Detected (NotDetected); Influenza B PCR Not Detected (NotDetected); Mycoplasma pneumoniae PCR Not Detected (NotDetected); Parainfluenza Virus 1 PCR Not Detected (NotDetected); Parainfluenza Virus 2 PCR Not Detected (NotDetected); Parainfluenza Virus 3 PCR Not Detected (NotDetected); Parainfluenza Virus 4 PCR Not Detected (NotDetected); Respiratory Syncytial VirusPCR Not Detected (NotDetected); Rhinovirus/Enterovirus PCR Not Detected (NotDetected)
[2024-05-17 00:15] LABS: INR 0.9 (0.9-1.1); Partial Thromboplastin Ratio 1.1; Partial Thromboplastin Time 30 Seconds (21-31); Prothrombin Time 10.2 Seconds (9.0-12.0)
[2024-05-17 00:17] LABS: Magnesium 2.1 mg/dl (1.7-2.4)
[2024-05-17 00:25] LABS: Troponin I High Sensitivity 37.7 pg/ml (0-20)
[2024-05-17 00:34] LABS: Thyroid Stimulating Hormone 0.902 uIu/ml (0.300-4.500)
[2024-05-17 00:43] LABS: Appearance Urine Cloudy (Clear); Bacteria Urine Automated None Seen (None Seen); Bilirubin Urine Negative (Negative); Blood Urine 1+ (Negative); Cast Urine Automated >20 /lpf (0-2); Color Urine Yellow; Epithelial Cell Urine Auto >20 /hpf (0-2); Glucose Urine UA Trace (Negative); Ketones Urine Trace (Negative); Leukocyte Esterase Urine Negative (Negative); Nitrite Urine Negative (Negative); Protein Urine 4+ (Negative); RBC Urine Automated 0-2 /hpf (0-2); Renal Epithelial Cells Urine Present /lpf (None Presnt); Urobilinogen Urine Negative (Negative); White Blood Cell Casts Urine Present /lpf (None Prsent); pH Urine 5.5 (4.5-7.5)
[2024-05-17 01:02] LABS: Amphetamines+Metham, Urine Neg (Neg); Barbiturates, Urine Neg (Neg); Benzodiazepine, Urine Neg (Neg); Cocaine, Urine Neg (Neg); Fentanyl, Urine Neg (Neg); MDMA (Ecstacy), Urine Neg (Neg); Marijuana, Urine Neg (Neg); Methadone, Urine Neg (Neg); Opiate, Urine Pos (Neg); Phencyclidine, Urine Neg (Neg)
[2024-05-17] MEDS: POTASSIUM CHLORIDE PWD 20 MEQ PACK PO STA (01:41)
[2024-05-17] MEDS: LABETALOL HCL IV 5 MG/ML 20ML IV STA ×2 (01:41→04:29)
[2024-05-17] MEDS ORDERED: PROMETHAZINE HCL 12.5 MG in SODIUM CHLORIDE 0.9% 50 ML IV PRN (02:07)
--- NOTE | 2024-05-17 02:08 | History & Physical Report ---
Date of Service May 17, 2024 Assessment & Plan (1) Hypertensive crisis: Plan: ? Presenting as back pain ? Rhabdomyolysis presenting as back pain Rule out anatomic pathology as etiology of back pain given unremarkable repeat CT imaging ARF on CKD secondary to rhabdomyolysis, recent diuretic Rx for possible CHF/peripheral edema hyperlipidemia, on statin Rx bronchial asthma, patient without pulmonary complaints mild HAYDEN (CPAP noncompliant) DM2 insulin requiring, well-controlled as of recent hemoglobin A1c of 6.9 last January 2024 chronic anemia, hemoglobin at baseline mood disorder, stable past tobacco/alcohol abuse, patient tremulous at the ER, last EtOH intake as per patient/ was around 2 weeks ago, currently without concerns for alcohol abuse. Admit to PCU Titrate home amlodipine while ARB and home diuretic on hold due to kidney dysfun ction Monitor creatinine, CPK response to IVF Hold statin for now given rhabdomyolysis Baseline TTE Re: Possible CHF MRI thoracic and lumbar spine given distressing back pain complaints Basal bolus insulin adjusted for decreased renal function, ISS BG goal 1 10-1 40, carb count coverage DVT prophylaxis. Heparin subcu Full code Patient requesting updates providers. Ms. Francisca Lopez, contact #[phone]. Text document was generated using [employer] voice recognition software. It may contain grammatical or spelling errors. Kindly contact undersigned for clarification of any documentation item in question. History of Present Illness Chief Complaint: Recurrent back pain Primary Care Provider: [facility] History obtained from patient, family, and records. Medical history significant for hypertension, hyperlipidemia, bronchial asthma, mild HAYDEN (CPAP noncompliant), DM2 insulin requiring, CRI (baseline creatinine 1.3), chronic anemia (baseline hemoglobin of 13), history LE venous stasis, mood disorder, past tobacco/alcohol abuse. Recent ER visit 10 days ago for back pain associated with bilateral lower extremity edema of 2 weeks duration.. Patient hypertensive at the ER. BNP elevated. Patient given Lasix for peripheral edema. Additional Lasix course prescribed at home from PCPs office which improved swelling. Concern for CHF as per PCP note. Back pain transiently improved. Few days ago patient had recurrence of mid to low back pain without radiation. No unusual headache symptoms. Denies recent trauma or exertion. Denies recent EtOH intake. Denies chest pain or SOB. Transient confusion at home due to uncontrolled pain as per patient. Patient not sleeping well. Claims to be compliant with medications. Highest SBP of 200s documented at the ER. Medical History as above Surgical History : Pilonidal cyst removal Family History : Heart disease, stomach cancer, DM Personal/Social history : Past tobacco/alcohol abuse, refrigeration work Allergies Allergy/AdvReac Type Severity Reaction Status Date / Time Penicillins Allergy Intermediate SWELLING Verified 05/07/24 16:34 OF FACE Home Medications Medication Instructions Recorded Confirmed Type insulin glargine 100 unit/mL 60 unit subcut QAM 02/23/19 05/17/24 History subcutaneous solution (Lantus U-100 Insulin) atorvastatin 10 mg tablet 10 mg PO DAILY 05/07/24 05/17/24 History hydrochlorothiazide 25 mg tablet 25 mg PO DAILY 05/07/24 05/17/24 History lisinopril 40 mg tablet 40 mg PO DAILY 05/07/24 05/17/24 History metformin 1,000 mg tablet 1,000 mg PO BIDM 05/07/24 05/17/24 History albuterol sulfate 90 mcg/actuation 2 puff inhalation Q4 PRN Shortness 05/17/24 05/17/24 History aerosol inhaler Of Breath Or Wheezing amlodipine 5 mg tablet 5 mg PO DAILY 05/17/24 05/17/24 History aspirin 81 mg tablet,delayed 81 mg PO DAILY 05/17/24 05/17/24 History release fluoxetine 10 mg capsule 10 mg PO QAM 05/17/24 05/17/24 History furosemide 20 mg tablet (Lasix) 20 mg PO DAILY 05/17/24 05/17/24 History semaglutide 1 mg/dose (4 mg/3 mL) 1 mg subcut WK 05/17/24 05/17/24 History subcutaneous pen injector (Ozempic) Past Med/Surg History Problem List (Updated 05/17/24 @ 08:59 by Marcial Barrientos MD) Hypertensive crisis Asymptomatic hypertensive urgency HTN (hypertension) (Acute) Back pain (Acute) Edema (Acute) Surgical History No significant past surgical history Social History Smoking Status: Current some day smoker Tobacco Type: E-cigarettes / Vaping Second Hand Exposure: Yes; Hx Alcohol Use: Yes Preferred Language: Japanese Administrator Required: No Beliefs That Will Affect Care: None Current Living Situation: Family Feels Safe at Home: Yes Assistive Devices: Glasses Review of Systems Review of Systems: As per HPI, all other systems reviewed and negative Physical Exam Physical Exam: GENERAL: Slightly uncomfortable, obese, tremulous, no respiratory distress SKIN: Normal color, warm HEENT: alopecia, bespectacled, pink palpebral conjunctivae, no ptosis, dry buccal mucosa NECK : Supple, no tenderness CHEST : CTA, no tenderness HEART : RRR, no obvious murmurs ABDOMEN: Some distention, nontender BACK : Minimal thoracolumbar tenderness, negative SLR EXTREMITIES : Minimal LE swelling, no LE tenderness, no other conspicuous deformities noted NEUROLOGIC : Coherent, no facial asymmetry, tremulous, no other gross focality Results & Data Results & Data Vital Signs (Past 12 Hours) Vital Signs Temp Pulse Pulse Resp BP BP Pulse Ox 05/17/24 01:41 97 H 188/110 H 05/17/24 01:00 99 H 19 201/100 H 99 05/16/24 23:41 91 H 05/16/24 23:30 91 H 24 149/81 H 97 05/16/24 23:00 91 H 20 143/116 H 99 05/16/24 22:41 36.4 C 97 H 18 185/98 H 98 O2 Del Method 05/17/24 01:41 05/17/24 01:00 Room Air 05/16/24 23:41 05/16/24 23:30 Room Air 05/16/24 23:00 Room Air 05/16/24 22:41 Room Air Laboratory Results Laboratory Results WBC 7.16 K/ul (4.8-10.8) 05/16/24 22:45 RBC 4.27 M/uL (4.70-6.10) L 05/16/24 22:45 Hgb 13.3 g/dl (14.0-18.0) L 05/16/24 22:45 Hct 38.2 % (42.0-52.0) L 05/16/24 22:45 MCV 89.5 fL (80.0-100.0) 05/16/24 22:45 MCH 31.1 pg (25.0-34.0) 05/16/24 22:45 MCHC 34.8 g/dL (32.0-36.0) 05/16/24 22:45 RDW Std Deviation 45.3 fL (36.4-46.3) 05/16/24 22:45 RDW Coeff of Garcia 14.0 % (11.5-14.5) 05/16/24 22:45 Plt Count 217 K/uL (130-400) 05/16/24 22:45 MPV 9.5 fL (9.4-12.4) 05/16/24 22:45 Immature Gran % (Auto) 0.8 % 05/16/24 22:45 Neut % (Auto) 69.1 % 05/16/24 22:45 Lymph % (Auto) 16.3 % 05/16/24 22:45 [place] % (Auto) 10.3 % 05/16/24 22:45 Eos % (Auto) 2.4 % 05/16/24 22:45 Baso % (Auto) 1.1 % 05/16/24 22:45 Neut # (Auto) 4.94 K/uL (1.40-6.50) 05/16/24 22:45 Lymph # (Auto) 1.17 K/uL (1.20-3.40) L 05/16/24 22:45 [place] # (Auto) 0.74 K/uL (0.11-0.59) H 05/16/24 22:45 Eos # (Auto) 0.17 K/uL (0.00-0.50) 05/16/24 22:45 Baso # (Auto) 0.08 K/uL (0.00-0.20) 05/16/24 22:45 Immature Gran # (Auto) 0.06 K/uL (0.01-0.20) 05/16/24 22:45 PT 10.2 Seconds (9.0-12.0) 05/16/24 22:54 INR 0.9 (0.9-1.1) 05/16/24 22:54 APTT 30 Seconds (21-31) 05/16/24 22:54 PTT Ratio 1.1 05/16/24 22:54 Sodium 139 mmol/L (136-145) 05/16/24 22:45 Potassium 2.9 mmol/L (3.5-5.1) L 05/16/24 22:45 Chloride 101 mmol/L (98-107) 05/16/24 22:45 Carbon Dioxide 28 mmol/L (21-32) 05/16/24 22:45 Anion Gap 10 (3-11) 05/16/24 22:45 BUN 33 mg/dl (6-23) H 05/16/24 22:45 Creatinine 2.34 mg/dl (0.6-1.4) H 05/16/24 22:45 Est Cr Clr Drug Dosing 43.0 ml/min 05/16/24 22:45 Est GFR ( Amer) 34.7 ml/min 05/16/24 22:45 Est GFR (Non-Af Amer) 30.0 ml/min 05/16/24 22:45 BUN/Creatinine Ratio 14.1 (10-20) 05/16/24 22:45 Glucose 189 mg/dl (70-99(Fasting)) H 05/16/24 22:45 Calcium 9.3 mg/dl (8.6-10.3) 05/16/24 22:45 Magnesium 2.1 mg/dl (1.7-2.4) 05/16/24 22:45 Total Bilirubin 0.6 mg/dl (0.2-1.0) 05/16/24 22:45 AST 44 U/L (13-39) H 05/16/24 22:45 ALT 42 U/L (7-52) 05/16/24 22:45 Alkaline Phosphatase 53 U/L (34-104) 05/16/24 22:45 Total Creatine Kinase 632 U/L (30-223) H 05/16/24 22:45 Troponin I High Sens 37.7 pg/ml (0-20) H 05/16/24 22:45 Total Protein 6.3 gm/dl (6.0-8.3) 05/16/24 22:45 Albumin 3.8 gm/dl (3.4-5.0) 05/16/24 22:45 Globulin 2.5 gm/dl (2.5-4.0) 05/16/24 22:45 Albumin/Globulin Ratio 1.5 (0.9-2) 05/16/24 22:45 Lipase 29 U/L (11-82) 05/16/24 22:45 TSH 0.902 uIu/ml (0.300-4.500) 05/16/24 22:45 Urine Color Yellow 05/17/24 00:05 Urine Appearance Cloudy (Clear) A 05/17/24 00:05 Urine pH 5.5 (4.5-7.5) 05/17/24 00:05 Ur Specific [place] 1.030 (1.000-1.030) 05/17/24 00:05 Urine Protein 4+ (Negative) H 05/17/24 00:05 Urine Glucose (UA) Trace (Negative) H 05/17/24 00:05 Urine Ketones Trace (Negative) H 05/17/24 00:05 Urine Blood 1+ (Negative) H 05/17/24 00:05 Urine Nitrite Negative (Negative) 05/17/24 00:05 Urine Bilirubin Negative (Negative) 05/17/24 00:05 Urine Urobilinogen Negative (Negative) 05/17/24 00:05 Ur Leukocyte Esterase Negative (Negative) 05/17/24 00:05 Urine WBC (Auto) 6-10 /hpf (0-5) H 05/17/24 00:05 Urine RBC (Auto) 0-2 /hpf (0-2) 05/17/24 00:05 U Hyaline Cast (Auto) >20 /lpf (0-2) H 05/17/24 00:05 U Epithel Cells (Auto) >20 /hpf (0-2) H 05/17/24 00:05 Urine Bacteria (Auto) None Seen (None Seen) 05/17/24 00:05 Ur Renal Epithelial Cell Present /lpf (None Presnt) A 05/17/24 00:05 WBC Casts Present /lpf (None Prsent) A 05/17/24 00:05 Urine Opiates Screen Pos (Neg) H 05/17/24 00:05 Ur Methadone, Qual Neg (Neg) 05/17/24 00:05 Urine Fentanyl Screen Neg (Neg) 05/17/24 00:05 Urine Barbiturates Neg (Neg) 05/17/24 00:05 Ur Phencyclidine (PCP) Neg (Neg) 05/17/24 00:05 U Amphetamin/Meth Scrn Neg (Neg) 05/17/24 00:05 MDMA (Ecstasy) Screen Neg (Neg) 05/17/24 00:05 U Benzodiazepines Scrn Neg (Neg) 05/17/24 00:05 Ur Cocaine Metabolite Neg (Neg) 05/17/24 00:05 U Marijuana (THC) Screen Neg (Neg) 05/17/24 00:05 Ethyl Alcohol mg/dL < 10.0 mg/dl (<10.0) 05/16/24 22:54 Adenovirus (PCR) Not Detected (NotDetected) 05/16/24 23:04 B. pertussis DNA (PCR) Not Detected (NotDetected) 05/16/24 23:04 B.parapertussis DNA PCR Not Detected (NotDetected) 05/16/24 23:04 Lyme Disease Screen Negative (Negative) 05/17/24 00:05 C. pneumoniae DNA (PCR) Not Detected (NotDetected) 05/16/24 23:04 Coronavirus OC43 (PCR) Not Detected (NotDetected) 05/16/24 23:04 Coronavirus HKU1 (PCR) Not Detected (NotDetected) 05/16/24 23:04 Coronavirus 229E (PCR) Not Detected (NotDetected) 05/16/24 23:04 SARS-CoV-2 (PCR) Not Detected (NotDetected) 05/16/24 23:04 Coronavirus NL63 (PCR) Not Detected (NotDetected) 05/16/24 23:04 Human Metapneumovir PCR Not Detected (NotDetected) 05/16/24 23:04 Influenza Type A (PCR) Not Detected (NotDetected) 05/16/24 23:04 Influenza Type B (PCR) Not Detected (NotDetected) 05/16/24 23:04 M. pneumoniae (PCR) Not Detected (NotDetected) 05/16/24 23:04 Parainfluenza 1 (PCR) Not Detected (NotDetected) 05/16/24 23:04 Parainfluenza 2 (PCR) Not Detected (NotDetected) 05/16/24 23:04 Parainfluenza 3 (PCR) Not Detected (NotDetected) 05/16/24 23:04 Parainfluenza 4 (PCR) Not Detected (NotDetected) 05/16/24 23:04 RSV (PCR) Not Detected (NotDetected) 05/16/24 23:04 Entero/Rhino (PCR) Not Detected (NotDetected) 05/16/24 23:04 CT chest: No focal infiltrate, pleural effusion, or pneumothorax. CT abdomen pelvis: 1. No hydronephrosis, nephrolithiasis, or obstructive uropathy. Trace, stable bilateral perinephric stranding. 2. Diverticulosis, without acute diverticulitis. No small bowel obstruction. No free intraperitoneal air. Diagnostic Findings EKG as per my interpretation : Rate 95, NSR, normal axis, nonspecific T wave abnormalities
[2024-05-17] MEDS: amLODIPine BESYLATE 5 MG TAB PO ONE ×3 (02:37→05:53)
[2024-05-17] MEDS: oxyCODONE HCL IR 5 MG TAB (IMMEDIATE RELEASE) PO PRN ×2 (02:37→09:02)
[2024-05-17] MEDS: ACETAMINOPHEN 1,000 MG/100 ML VIAL IV STA (02:39)
[2024-05-17] MEDS: LORazepam 0.5 MG in SYRINGE 0.25 ML IV STA (02:39)
[2024-05-17] MEDS: THIAMINE HCL 100 MG in SYRINGE 9 ML IV STA (02:40)
[2024-05-17] MEDS: NSS + 20MEQ KCL 20 MEQ/1,000 ML BAG IV ONE (03:05)
[2024-05-17] MEDS: POTASSIUM CHLORIDE PWD 20 MEQ PACK PO ONE (03:14)
[2024-05-17 03:18] LABS: C Reactive Protein < 0.50 mg/dl (0-0.5)
[2024-05-17 03:25] LABS: Troponin I High Sensitivity 29.9 pg/ml (0-20)
[2024-05-17] MEDS: MELATONIN 3 MG TAB PO PRN (03:45)
--- NOTE | 2024-05-17 04:01 | CT Scan Report ---
Exam(s): CT CHEST Without Contrast EXAM: CT Chest Without Intravenous Contrast CLINICAL HISTORY: Reason for exam: back pain. TECHNIQUE: Axial computed tomography images of the chest without intravenous contrast. CTDI is 27.95 mGy and DLP is 2494.84 mGy-cm. Automated exposure control was utilized for the study. A dose lowering technique was utilized adhering to the principles of ALARA. COMPARISON: No relevant prior studies available. FINDINGS: LUNGS: No focal consolidation, pleural effusion, or pneumothorax. HEART: Within normal limits. VASCULATURE: Within normal limits without contrast. THYROID: Within normal limits. MEDIASTINUM + LYMPH NODES: There are no pathologically enlarged mediastinal, hilar, or axillary lymph nodes. SUPERIOR ABDOMEN: The included portions of the superior abdomen are within normal limits. MUSCULOSKELETAL: Within normal limits. IMPRESSION: No focal infiltrate, pleural effusion, or pneumothorax. Electronically signed by: Manuel Castañeda MD 05/17/24 04:00 AM
[2024-05-17] MEDS ORDERED: DEXTROSE 50% 50 ML SYRINGE IV PRN (04:21)
[2024-05-17] MEDS ORDERED: CARBOHYDRATES FOR HYPOGLYCEMIA PO PRN (04:21)
[2024-05-17] MEDS ORDERED: GLUCAGON FOR INJ 1 MG VIAL SQ PRN (04:21)
[2024-05-17] MEDS ORDERED: GLUCOSE 10 TAB/TUBE PO PRN (04:21)
[2024-05-17] MEDS ORDERED: GLUCOSE 40% GEL 15 GM TUBE PO PRN (04:21)
--- NOTE | 2024-05-17 04:41 | CT Scan Report ---
Exam(s): CT ABDOMEN + PELVIS Without Contrast EXAM: CT Abdomen and Pelvis Without Intravenous Contrast CLINICAL HISTORY: Reason for exam: back pain. TECHNIQUE: Axial computed tomography images of the abdomen and pelvis without intravenous contrast. CTDI is 27.95 mGy and DLP is 2494.84 mGy-cm. Automated exposure control was utilized for the study. A dose lowering technique was utilized adhering to the principles of ALARA. COMPARISON: CT abdomen and pelvis May 07, 2024. FINDINGS: Lung bases: Unremarkable. No mass. No consolidation. ABDOMEN: Liver: Unremarkable. Gallbladder and bile ducts: Unremarkable. No calcified stones. No ductal dilation. Pancreas: Unremarkable. No ductal dilation. Spleen: Enlarged spleen, measures 17 cm. Adrenals: Unremarkable. No mass. Kidneys and ureters: No hydronephrosis, nephrolithiasis, or obstructive uropathy. Trace, stable bilateral perinephric stranding. Stomach and bowel: Diverticulosis, without acute diverticulitis. No small bowel obstruction. No free intraperitoneal air. PELVIS: Appendix: No findings to suggest acute appendicitis. Bladder: Unremarkable. No stones. Reproductive: Unremarkable as visualized. ABDOMEN and PELVIS: Intraperitoneal space: Unremarkable. No free air. No significant fluid collection. Bones/joints: Degenerative changes of the spine. No acute fracture. No dislocation. Soft tissues: Unremarkable. Vasculature: Atherosclerotic changes of the aorta. No abdominal aortic aneurysm. Lymph nodes: Unremarkable. No enlarged lymph nodes. IMPRESSION: 1. No hydronephrosis, nephrolithiasis, or obstructive uropathy. Trace, stable bilateral perinephric stranding. 2. Diverticulosis, without acute diverticulitis. No small bowel obstruction. No free intraperitoneal air. Electronically signed by: Manuel Castañeda MD 05/17/24 04:40 AM
[2024-05-17] MEDS: oxyCODONE HCL IR 5 MG TAB (IMMEDIATE RELEASE) PO STA (04:57)
[2024-05-17] MEDS: INSULIN ASPART PER UNIT CHARGE SC SCH (05:11)
[2024-05-17] MEDS: HEPARIN SOD 5,000 UNIT/0.5 ML VIAL SQ SCH (05:12)
[2024-05-17 06:47] LABS: Basophils # (auto) 0.07 K/uL (0.00-0.20); Basophils % (auto) 1.1 %; Eosinophils % (auto) 1.5 %; Hemoglobin 12.8 g/dl (14.0-18.0); Immature Granulocytes # (auto) 0.05 K/uL (0.01-0.20); Immature Granulocytes % (auto) 0.8 %; Lymphocytes # (auto) 0.93 K/uL (1.20-3.40); Mean Corpuscular Hemoglobin 31.1 pg (25.0-34.0); Mean Corpuscular Hgb Conc 35.6 g/dL (32.0-36.0); Mean Corpuscular Volume 87.6 fL (80.0-100.0); Mean Platelet Volume 9.2 fL (9.4-12.4); Monocytes # (auto) 0.58 K/uL (0.11-0.59); Monocytes % (auto) 8.7 %; Neutrophils # (auto) 4.92 K/uL (1.40-6.50); Neutrophils % (auto) 73.9 %; Platelet Count 190 K/uL (130-400); RDW Coefficient of Variation 13.6 % (11.5-14.5); RDW Standard Deviation 43.6 fL (36.4-46.3); Red Blood Count 4.11 M/uL (4.70-6.10); White Blood Count 6.65 K/ul (4.8-10.8)
[2024-05-17 07:11] LABS: BUN Creatinine Ratio 16.8 (10-20); Calcium 8.7 mg/dl (8.6-10.3); Creatinine Clr Calc Pharmacy 72.6 ml/min; Est GFR (African American) 66.4 ml/min; Est GFR (Non-African American) 57.2 ml/min; Potassium 3.2 mmol/L (3.5-5.1)
--- NOTE | 2024-05-17 07:21 | XRay Report ---
XR chest 1V portable CLINICAL HISTORY: renal failure TECHNIQUE: Single frontal radiograph of the chest was obtained. Comparison: Comparison is made to chest radiograph 05/07/2024 FINDINGS: No lines and tubes are seen. The cardiomediastinal silhouette is stable. The lungs are clear. No evid ence of pleural effusion or pneumothorax. IMPRESSION: No acute chest disease. ACT 112: Negative or not required by law. Electronically signed by: Waylon Fernández M.D. 05/17/2024 7:19 AM
[2024-05-17 07:29] LABS: Estimated Average Glucose 120 mg/dl; Hemoglobin A1C 5.8 % (4.5-5.6)
[2024-05-17] MEDS: POTASSIUM CHLORIDE CRTAB 20 MEQ TABCR PO STA (08:14)
[2024-05-17] MEDS: FLUoxetine HCL 10 MG CAP PO SCH (08:15)
[2024-05-17] MEDS: ASPIRIN 81 MG ECTAB PO SCH (08:15)
[2024-05-17] MEDS: LANTUS PER UNIT CHARGE SQ SCH (08:15)
[2024-05-17] MEDS: ACETAMINOPHEN 325 MG TAB PO PRN (08:24)
[2024-05-17] MEDS ORDERED: LANTUS PER UNIT CHARGE SQ SCH (09:00)
[2024-05-17] MEDS: LORazepam 0.5 MG in SYRINGE 0.25 ML IV PRN (11:13)
[2024-05-17] MEDS: CYCLOBENZAPRINE HCL 5 MG TAB PO PRN (12:10)
--- NOTE | 2024-05-17 12:21 | Magnetic Resonance Report ---
MR thoracic spine wo con CLINICAL HISTORY: back pain TECHNIQUE: Multiplanar sequences through the thoracic spine were obtained, without intravenous contra st. Comparison: Comparison is made to CT chest 05/17/2024 FINDINGS: Exam is highly limited by patient motion. The alignment is anatomical. Disks are normal in height an d signal. The spinal canal and neural foramina are patent. The spinal ligaments are intact, without evidence of disruption or abnormal signal intensity. The spi nal cord is normal in signal intensity and there is no evidence of cord contusion. There is no eviden ce of an extradural, intradural, extramedullary or intramedullary lesion. Visualized soft tissues are normal. IMPRESSION: Highly limited exam due to patient motion. No significant canal stenosis and no acute abnormalities a re seen. ACT 112: Negative or not required by law. Electronically signed by: Waylon Fernández M.D. 05/17/2024 12:20 PM
--- NOTE | 2024-05-17 12:49 | Electrocardiogram Report ---
Test Reason : Blood Pressure : / mmHG Vent. Rate : 096 BPM Atrial Rate : 096 BPM P-R Int : 152 ms QRS Dur : 102 ms QT Int : 392 ms P-R-T Axes : 053 034 059 degrees QTc Int : 495 ms Normal sinus rhythm Nonspecific T wave abnormality Prolonged QT Abnormal ECG When compared with ECG of 07-MAY-2024 17:19, QT has lengthened Confirmed by Roque Marie ([id number]) on 05/17/2024 12:48:42 PM Referred By: Confirmed By:Roque Marie
--- NOTE | 2024-05-17 14:07 | Communication Note ---
Date of Service: May 17, 2024 Patient was seen and examined at bedside. 58-year-old male with PMH of HTN, HLD, bronchial asthma, mild HAYDEN [CPAP noncompliant], T2DM insulin requiring, CKD [baseline creatinine 1.3], chronic anemia [baseline hemoglobin 13], LE venous stasis, mood disorder, past tobacco/alcohol abuse who was recently here in the ED about 10 days ago [employer] for back pain and BLE extremity edema/was started on Lasix with improvement in both back pain and BLE edema. There was concern of CHF as per PCP note. Few days ago [employer] patient had recurrence of mid to low back pain without radiation, denies trauma or heavy lifting or chest pain or shortness of breath or febrile illness. Patient reports compliance with home medications. Blood pressure noted to be 185/98 mmHg at presentation. He is being managed for the following: Hypertensive crisis Patient reports compliance with his home medications [amlodipine, Lasix, hydrochlorothiazide, lisinopril]. Admitting blood pressure elevated at 185/98 mmHg. UA neg for UTI, Resp biofire and lyme screen neg. Troponin flat trend around 30, EKG with NSR, no acute ST or T abnormality. Admitting CXR with no acute chest disease. Echo with mild concentric LVH, no regional wall motion abnormality, EF 50 to 55%, aortic root borderline dilated 3.8 cm. LV systolilc fxn is normal. Continue amlodipine at 10 mg daily, continue other home blood pressure medications as kidney function improved. Acute back pain Rhabdomyolysis Patient presenting with acute back pain, SLRT negative, reports some numbness bilateral feet. Patient is afebrile, does not have vertebral tenderness on exam, no bowel or bladder incontinence symptoms. Lipase/TSH/ESR/CRP WNL. Admitting CTAP with no acute finding. Admitting CT chest with no acute finding. Admitting thoracic spine MRI with no acute finding Admitting CPK of 632, downtrending. Could be the reason for back pain. Statin on hold. 05/17/24 at 0005hrs Utox +ve for Opiates, rest are pending. Pt denies opiates use, opiates received at hospital first few doses (05/17/24 at 0237 and 0457 hrs) Continue with Flexeril, oxycodone. Lumbar spine MRI pending Pt noted to be tremulous, had diaphoresis and 3 loose stools, ? opiate withdrawal ? if patient is taking opiates as outpatient. PDMP w/ no opiates history. Pain management consult. Acute kidney injury: Admitting creatinine of 2.34, baseline creatinine around 1.25. Status post IV fluid. Resolved. Hypokalemia: Monitor and replete. Elevated BNP: BNP at 145. CXR w/ no congestion. Pt appears euvolemic. ECHO as above. Other chronic medical conditions: Continue with/resume home meds as and when able. hyperlipidemia, on statin Rx bronchial asthma, patient without pulmonary complaints mild HAYDEN (CPAP noncompliant) DM2 insulin requiring, well-controlled as of recent hemoglobin A1c of 6.9 last January 2024. A1c of 5.8 this admission. chronic anemia, hemoglobin at baseline mood disorder, stable past tobacco/alcohol abuse, patient tremulous at the ER, last EtOH intake as per patient/ was around 2 weeks ago, currently without concerns for alcohol abuse. DVT prophylaxis. Heparin subcu Full code Patient Ms. Francisca Lopez, contact #[phone]. Updated at bedside. Text document was generated using [employer] voice recognition software. It may contain grammatical or spelling errors. Kindly contact undersigned for clarification of any documentation item in question.
[2024-05-17] MEDS: LABETALOL HCL IV 5 MG/ML 20ML IV PRN (16:07)
[2024-05-17] MEDS: HYDROmorphone INJ 0.5 MG/0.5 ML SYR IV PRN (16:07)
[2024-05-17] MEDS: lisinopril 40 MG TAB PO SCH (20:47)
--- NOTE | 2024-05-17 21:45 | Communication Note ---
Date of Service: May 17, 2024 Made aware by RN of uncontrolled blood pressure since AM. SBP 160 to 200s. Usual back pain complaint as per RN. AP Hypertensive urgency Add Coreg to current regimen. Will relay to AM provider.
[2024-05-17] MEDS: carvediloL 3.125 MG TAB PO SCH (23:40)
--- NOTE | 2024-05-17 23:44 | CT Scan Report ---
Exam(s): CT HEAD Without Contrast EXAM: CT Head Without Intravenous Contrast CLINICAL HISTORY: Reason for exam: fall about a week ago per family.. TECHNIQUE: Axial computed tomography images of the head/brain without intravenous contrast. CTDI is 35.65 mGy and DLP is 624.41 mGy-cm. Automated exposure control was utilized for the study. A dose lowering technique was utilized adhering to the principles of ALARA. COMPARISON: No relevant prior studies available. FINDINGS: Brain: Unremarkable. No hemorrhage. Mild nonspecific white matter changes. No edema. Ventricles: Unremarkable. No ventriculomegaly. Bones/joints: Unremarkable. No acute fracture. Soft tissues: Mild soft tissue swelling over the forehead and left lateral scalp. Sinuses: Unremarkable as visualized. No acute sinusitis. Mastoid air cells: Unremarkable as visualized. No mastoid effusion. IMPRESSION: No evidence of acute intercranial pathology. Electronically signed by: Suzy Rockwell MD 05/17/24 23:43 PM
[2024-05-18] MEDS: amLODIPine BESYLATE 5 MG TAB PO ONE (04:22)
[2024-05-18] MEDS: carvediloL 3.125 MG TAB PO ONE (05:49)
[2024-05-18 07:00] LABS: Hematocrit (blood only) 38.2 % (42.0-52.0); Hemoglobin 13.6 g/dl (14.0-18.0); Mean Corpuscular Hemoglobin 30.8 pg (25.0-34.0); Mean Corpuscular Hgb Conc 35.6 g/dL (32.0-36.0); Mean Corpuscular Volume 86.6 fL (80.0-100.0); Mean Platelet Volume 9.1 fL (9.4-12.4); Platelet Count 202 K/uL (130-400); RDW Coefficient of Variation 13.1 % (11.5-14.5); RDW Standard Deviation 41.3 fL (36.4-46.3); Red Blood Count 4.41 M/uL (4.70-6.10); White Blood Count 8.27 K/ul (4.8-10.8)
[2024-05-18 07:33] LABS: BUN Creatinine Ratio 16.5 (10-20); Calcium 9.3 mg/dl (8.6-10.3); Creatinine Clr Calc Pharmacy 109.4 ml/min; Est GFR (African American) 108.8 ml/min; Est GFR (Non-African American) 93.9 ml/min; Magnesium 1.6 mg/dl (1.7-2.4); Potassium 3.2 mmol/L (3.5-5.1)
[2024-05-18] MEDS: hydroCHLOROthiazide 25 MG TAB PO SCH (08:28)
[2024-05-18] MEDS: FUROSEMIDE 20 MG TAB PO SCH (08:28)
[2024-05-18] MEDS ORDERED: amLODIPine BESYLATE 5 MG TAB PO SCH ×3 (09:00)
[2024-05-18] MEDS: MAGNESIUM SULFATE / D5W 1 GM/100 ML BAG IV SCH (09:04)
[2024-05-18] MEDS: POTASSIUM CHLORIDE CRTAB 20 MEQ TABCR PO SCH (09:05)
--- NOTE | 2024-05-18 09:28 | Pain Management Consultation ---
Date of Consultation May 18, 2024 Assessment & Plan (1) SHAHRIAR (acute kidney injury): (2) Generalized pain: (3) Elevated CK: (4) Elevated troponin: (5) Hypertensive crisis: Plan Low back pain could be a result of elevated CK levels. He denies any injury or radicular symptoms. Thoracic MRI was reviewed and lumbar spine was visualized and I did not see any acute findings. Nothing to offer interventionally. He is currently ordered Oxycodone 10mg QID and Flexeril 5-10mg QID which is providing moderate pain relief. Has used IV Dilaudid 0.25mg x 2 in the past 24 hours. I did discuss the positive urine drug screen that was positive for opioids prior to receiving pain medications and he admits that he tried taking a few of his 's leftover Tylenol with Codeine pills prior to admission to see if it may help with the back pain. Will sign off on the patient. Please contact with any questions or concerns. History of Present Illness Reason for Consultation: Back pain Attending Physician: Myranda Finn MD History of Present Illness This is a 58-year-old male that has been admitted to the [facility] for hypertensive crisis, acute kidney injury, back pain, elevated creatinine kinase, elevated troponin. He has been difficulty getting his blood pressure under control. Elevated creatinine kinase although the patient denies any recent injury or fall. Acute kidney injury has been improving with IV fluids. He describes a deep aching pain along the low back and also pain around his shoulder blades over the last 3 weeks without any injury. He denies any radicular symptoms. He has been taking ibuprofen without any significant relief. He had tried taking some of his 's leftover Tylenol with codeine. He does not have any significant history of back issues. Currently he is utilizing oxycodone 10 mg and IV Dilaudid 0.25 mg for pain relief which is providing moderate improvement. He is able to stand and walk around the room without any issue. His quality of sleep has improved since admission. No alcohol withdrawal concerns or opioid withdrawal concerns. Case discussed with Dr. Lachelle Maradiaga Allergies Allergy/AdvReac Type Severity Reaction Status Date / Time Penicillins Allergy Intermediate SWELLING Verified 05/07/24 16:34 OF FACE Home Medications Medication Instructions Recorded Confirmed Type insulin glargine 100 unit/mL 60 unit subcut QAM 04/23/19 07/15/24 History subcutaneous solution (Lantus U-100 Insulin) atorvastatin 10 mg tablet 10 mg PO DAILY 05/07/24 05/17/24 History hydrochlorothiazide 25 mg tablet 25 mg PO DAILY 05/07/24 05/17/24 History lisinopril 40 mg tablet 40 mg PO DAILY 05/07/24 05/17/24 History metformin 1,000 mg tablet 1,000 mg PO BIDM 05/07/24 05/17/24 History albuterol sulfate 90 mcg/actuation 2 puff inhalation Q4 PRN Shortness 05/17/24 05/17/24 History aerosol inhaler Of Breath Or Wheezing amlodipine 5 mg tablet 5 mg PO DAILY 05/17/24 05/17/24 History aspirin 81 mg tablet,delayed 81 mg PO DAILY 05/17/24 05/17/24 History release fluoxetine 10 mg capsule 10 mg PO QAM 05/17/24 05/17/24 History furosemide 20 mg tablet (Lasix) 20 mg PO DAILY 05/17/24 05/17/24 History semaglutide 1 mg/dose (4 mg/3 mL) 1 mg subcut WK 05/17/24 05/17/24 History subcutaneous pen injector (Ozempic) Patient History Surgical History No significant past surgical history Social History Smoking Status: Current some day smoker Tobacco Type: E-cigarettes / Vaping Second Hand Exposure: Yes; Hx Alcohol Use: Yes Preferred Language: [place]araguan Communication Ability: Effective Surveillance Agent Required: No Beliefs That Will Affect Care: None Current Living Situation: Family Feels Safe at Home: Yes Assistive Devices: None Physical Exam Physical Exam: GENERAL: This is a 58 year old male in no acute distress. Able to move from supine to sitting without any difficulty. HEAD/FACE: Normocephalic and atraumatic. EYES: No drainage or conjunctival injection. ENT: Nose without bleeding or discharge. Oral mucosa moist. NECK: Full ROM without apparent pain. No swelling or masses noted. RESPIRATORY: Patient with unlabored breathing. No signs of respiratory distress. CHEST/AXILLA: Chest movement symmetrical. No deformities noted. ABDOMEN/GI: No distension BACK: No thoracic or lumbar midline or facet joint tenderness. No myofascial spasm or trigger points noted. No SI joint tenderness. SKIN: [place], warm and dry. No rash noted. MS/EXTREMITY: 5/5 strength of the lower extremities. Negative straight leg raise. NEURO: Alert and appears oriented. Speech is fluent. Cranial Nerves are grossly intact. PSYCH: Alert, pleasant, affect is calm Results (Pain Clinic) Diagnostic Review MRI Findings: MR thoracic spine wo con CLINICAL HISTORY: back pain TECHNIQUE: Multiplanar sequences through the thoracic spine were obtained, without intravenous contrast. Comparison: Comparison is made to CT chest 05/17/2024 FINDINGS: Exam is highly limited by patient motion. The alignment is anatomical. Disks are normal in height and signal. The spinal canal and neural foramina are patent. The spinal ligaments are intact, without evidence of disruption or abnormal signal intensity. The spinal cord is normal in signal intensity and there is no evidence of cord contusion. There is no evidence of an extradural, intradural, extramedullary or intramedullary lesion. Visualized soft tissues are normal. IMPRESSION: Highly limited exam due to patient motion. No significant canal stenosis and no acute abnormalities are seen. ACT 112: Negative or not required by law. Electronically signed by: Waylon Fernández M.D. 05/17/2024 12:20 PM
[2024-05-18] MEDS: DOCUSATE SODIUM/SENNA 50/8.6MG TAB PO SCH (10:18)
[2024-05-18] MEDS: POLYETHYLENE (MIRALAX) 17 GM PACK PO SCH (10:20)
--- NOTE | 2024-05-18 14:24 | Magnetic Resonance Report ---
MR lumbar spine wo con CLINICAL HISTORY: back pain TECHNIQUE: Multiplanar sequences through the lumbar spine were obtained, without intravenous contrast . Comparison: None available at the time of this dictation. FINDINGS: The alignment is anatomical. L1-L2: No significant abnormality. L2-L3: No significant abnormality. L3-L4: No significant abnormality. L4-L5: Broad-based posterior disc bulge is seen with mild canal stenosis and no significant neurofora meghan stenosis. L5-S1: No significant abnormality. The spinal ligaments are intact, without evidence of disruption or abnormal signal intensity. The spi nal cord is normal in signal intensity and there is no evidence of cord contusion. There is no eviden ce of an extradural, intradural, extramedullary or intramedullary lesion. Visualized soft tissues are normal. IMPRESSION: Mild degenerative changes without significant neuroforaminal stenosis. ACT 112: Negative or not required by law. Electronically signed by: Waylon Fernández M.D. 05/18/2024 2:21 PM
--- NOTE | 2024-05-18 15:28 | Hospitalist Progress Note ---
Date of Service May 18, 2024 Assessment & Plan (1) HTN (hypertension): Plan 58-year-old male with PMH of HTN, HLD, bronchial asthma, mild HAYDEN [CPAP noncompliant], T2DM insulin requiring, CKD [baseline creatinine 1.3], chronic anemia [baseline hemoglobin 13], LE venous stasis, mood disorder, past tobacco/alcohol abuse who was recently here in the ED about 10 days ago [employer] for back pain and BLE extremity edema/was started on Lasix with improvement in both back pain and BLE edema. There was concern of CHF as per PCP note. Few days ago [employer] patient had recurrence of mid to low back pain without radiation, denies trauma or heavy lifting or chest pain or shortness of breath or febrile illness. Patient reports compliance with home medications. Blood pressure noted to be 185/98 mmHg at presentation. He is being managed for the following: Hypertensive crisis Patient reports compliance with his home medications [amlodipine, Lasix, hydrochlorothiazide, lisinopril]. Admitting blood pressure elevated at 185/98 mmHg. UA neg for UTI, Resp biofire and lyme screen neg. Troponin flat trend around 30, EKG with NSR, no acute ST or T abnormality. Admitting CXR with no acute chest disease. Echo with mild concentric LVH, no regional wall motion abnormality, EF 50 to 55%, aortic root borderline dilated 3.8 cm. LV systolilc fxn is normal. Continue amlodipine at 10 mg daily, continue other home blood pressure medications as kidney function improved. Coreg added 05/18, continue. Prn bp meds on board. Acute back pain Elevated CPK, no rhabdomyolysis criteria met. Patient presenting with acute back pain, SLRT negative, reports some numbness bilateral feet. Has h/o back trauma in remote past. Patient is afebrile, does not have vertebral tenderness on exam, no bowel or bladder incontinence symptoms. Lipase/TSH/ESR/CRP WNL. Admitting CTAP with no acute finding. Admitting CT chest with no acute finding. Admitting thoracic spine MRI with no acute finding L spine MRI w/ no acute finding. Admitting CPK of 632, downtrending. Could be the reason for back pain. Statin on hold. 05/17/24 at 0005hrs Utox +ve for Opiates, rest are pending. Pt denies opiates use reports using Tylenol w/ codeine pills ('s left over prescription per pt) [employer], opiates received at hospital first few doses (05/17/24 at 0237 and 0457 hrs) C/w aggressive Pain Mx: make Tylenol and flexeril JUSTYNA, Add Justyna gabapentin/uptitrate gardually, c/w prn oxy and prn dilaudid. JUSTYNA bowel regimen. Pain Mx evaled, no acute intervention. PT/OT. Acute kidney injury: Admitting creatinine of 2.34, baseline creatinine around 1.25. Status post IV fluid. Resolved. Hypokalemia: Monitor and replete. Elevated BNP: BNP at 145. CXR w/ no congestion. Pt appears euvolemic. ECHO as above. Other chronic medical conditions: Continue with/resume home meds as and when able. hyperlipidemia, on statin Rx bronchial asthma, patient without pulmonary complaints mild HAYDEN (CPAP noncompliant) DM2 insulin requiring, well-controlled as of recent hemoglobin A1c of 6.9 last January 2024. A1c of 5.8 this admission. chronic anemia, hemoglobin at baseline mood disorder, stable past tobacco/alcohol abuse, patient tremulous at the ER, last EtOH intake as per patient/ was around 2 weeks ago, currently without concerns for alcohol abuse. DVT prophylaxis. Heparin subcu Full code Patient Ms. Francisca Lopez, contact #[phone]. Updated at bedside 05/17, 05/18. Text document was generated using [employer] voice recognition software. It may contain grammatical or spelling errors. Kindly contact undersigned for clarification of any documentation item in question. Admission and Anticipated Discharge Date Admission Date: May 17, 2024 Subjective Patient was seen and examined at bedside. Patient was lying in bed, on room air, NAD, reports low back pain with minimal relief. Patient denies febrile illness, any trouble controlling bowel or bladder habits, is eating okay, is moving bowels. Patient denies headache or chest pain or abdominal pain. Physical Exam Physical Exam: GENERAL: Slightly uncomfortable, obese, no respiratory distress SKIN: Normal color, warm HEENT: alopecia, bespectacled, pink palpebral conjunctivae, no ptosis, moist buccal mucosa NECK : Supple, no tenderness CHEST : CTA, no tenderness HEART : RRR, no obvious murmurs ABDOMEN: Some distention, nontender BACK : Minimal thoracolumbar tenderness, negative SLR EXTREMITIES : Minimal LE swelling, no LE tenderness, no other conspicuous deformities noted. SLRT negative. NEUROLOGIC : Coherent, no facial asymmetry, no other gross focality Results & Data Results & Data Vital Signs (Past 12 Hours) Vital Signs Temp Pulse Pulse Resp BP BP BP 05/18/24 14:52 36.8 C 91 H 18 157/102 H 05/18/24 14:18 92 H 18 162/103 H 05/18/24 13:37 94 H 05/18/24 11:13 36.8 C 89 18 171/110 H 05/18/24 09:05 97 H 169/107 H 05/18/24 08:20 104 H 185/118 H 05/18/24 07:36 36.9 C 104 H 17 185/118 H 05/18/24 05:34 197/118 H 05/18/24 04:08 90 194/119 H 05/18/24 03:22 36.7 C 96 H 22 192/118 H 193/136 H Pulse Ox O2 Del Method 05/18/24 14:52 98 Room Air 05/18/24 14:18 05/18/24 13:37 05/18/24 11:13 98 Room Air 05/18/24 09:05 05/18/24 08:20 05/18/24 07:36 97 Room Air 05/18/24 05:34 05/18/24 04:08 05/18/24 03:22 96 Room Air
[2024-05-18] MEDS ORDERED: ACETAMINOPHEN 325 MG TAB PO SCH (17:00)
[2024-05-18] MEDS: ACETAMINOPHEN 325 MG TAB PO SCH (18:15)
[2024-05-18] MEDS: HYDROmorphone INJ 0.5 MG/0.5 ML SYR IV PRN (19:37)
[2024-05-18] MEDS: carvediloL 3.125 MG TAB PO SCH (20:27)
[2024-05-18] MEDS: CYCLOBENZAPRINE HCL 5 MG TAB PO SCH (20:27)
[2024-05-18] MEDS: GABAPENTIN 100 MG CAP PO SCH (20:28)
[2024-05-18] MEDS: LANTUS PER UNIT CHARGE SQ STA (21:44)
[2024-05-19] MEDS: carvediloL 6.25 MG TAB PO ONE (03:44)
[2024-05-19] MEDS: hydrALAZINE HCL 20 MG/ML VIAL IV ONE (03:45)
[2024-05-19 06:13] LABS: Hematocrit (blood only) 39.2 % (42.0-52.0); Hemoglobin 14.2 g/dl (14.0-18.0); Mean Corpuscular Hemoglobin 31.1 pg (25.0-34.0); Mean Corpuscular Hgb Conc 36.2 g/dL (32.0-36.0); Mean Platelet Volume 9.2 fL (9.4-12.4); Platelet Count 213 K/uL (130-400); RDW Coefficient of Variation 13.1 % (11.5-14.5); Red Blood Count 4.56 M/uL (4.70-6.10); White Blood Count 9.16 K/ul (4.8-10.8)
[2024-05-19 06:28] LABS: BUN Creatinine Ratio 22.5 (10-20); Calcium 9.2 mg/dl (8.6-10.3); Creatinine Clr Calc Pharmacy 112.1 ml/min; Est GFR (African American) 110.8 ml/min; Est GFR (Non-African American) 95.6 ml/min; Magnesium 1.8 mg/dl (1.7-2.4); Phosphorus 3.4 mg/dl (2.5-4.9); Potassium 3.5 mmol/L (3.5-5.1)
[2024-05-19] MEDS ORDERED: carvediloL 6.25 MG TAB PO SCH (08:00)
[2024-05-19] MEDS: LANTUS PER UNIT CHARGE SQ SCH (08:14)
[2024-05-19] MEDS: amLODIPine BESYLATE 5 MG TAB PO SCH (08:14)
[2024-05-19 12:47] LABS: Codeine Urine NEGATIVE ng/mL (<50); Hydrocodone Urine 272 ng/mL (<50); Hydromor Urine NEGATIVE ng/mL (<50); Morphine Urine NEGATIVE ng/mL (<50); Norhydrocodone Conf Ur 194 ng/mL (<50); Noroxycodone Urine NEGATIVE ng/mL (<50); Oxycodone Urine NEGATIVE ng/mL (<50); Oxymorph Urine NEGATIVE ng/mL (<50)
--- NOTE | 2024-05-19 14:16 | Hospitalist Progress Note ---
Date of Service May 19, 2024 Assessment & Plan (1) HTN (hypertension): Plan 58-year-old male with PMH of HTN, HLD, bronchial asthma, mild HAYDEN [CPAP noncompliant], T2DM insulin requiring, CKD [baseline creatinine 1.3], chronic anemia [baseline hemoglobin 13], LE venous stasis, mood disorder, past tobacco/alcohol abuse who was recently here in the ED about 10 days ago [employer] for back pain and BLE extremity edema/was started on Lasix with improvement in both back pain and BLE edema. There was concern of CHF as per PCP note. Few days ago [employer] patient had recurrence of mid to low back pain without radiation, denies trauma or heavy lifting or chest pain or shortness of breath or febrile illness. Patient reports compliance with home medications. Blood pressure noted to be 185/98 mmHg at presentation. He is being managed for the following: Hypertensive crisis Patient reports compliance with his home medications [amlodipine, Lasix, hydrochlorothiazide, lisinopril]. Admitting blood pressure elevated at 185/98 mmHg. UA neg for UTI, Resp biofire and lyme screen neg. Troponin flat trend around 30, EKG with NSR, no acute ST or T abnormality. Admitting CXR with no acute chest disease. Echo with mild concentric LVH, no regional wall motion abnormality, EF 50 to 55%, aortic root borderline dilated 3.8 cm. LV systolilc fxn is normal. Continue amlodipine at 10 mg daily, continue other home blood pressure medications as kidney function improved. Coreg added 05/18, uptitrated to 6.25 mg bid, continue. Prn bp meds on board. Acute back pain Elevated CPK, no rhabdomyolysis criteria met. Patient presenting with acute back pain, SLRT negative, reports some numbness bilateral feet. Has h/o back trauma in remote past. Patient is afebrile, does not have vertebral tenderness on exam, no bowel or bladder incontinence symptoms. Lipase/TSH/ESR/CRP WNL. Admitting CTAP with no acute finding. Admitting CT chest with no acute finding. Admitting thoracic spine MRI with no acute finding L spine MRI w/ no acute finding. Admitting CPK of 632, downtrending. Could be the reason for back pain. Statin on hold. 05/17/24 at 0005hrs Utox +ve for Opiates, rest are neg. Pt denies opiates use, reports using Tylenol w/ codeine pills ('s left over prescription per pt) [employer], opiates received at hospital first few doses (05/17/24 at 0237 and 0457 hrs) Moderate pain reflief per pt, overall better, reports intermittent paresthesias ble. C/w aggressive Pain Mx: make Tylenol and flexeril JUSTYNA, c/w Justyna gabapentin/uptitrate gardually, c/w prn oxy and prn dilaudid. JUSTYNA bowel regimen. Pain Mx evaled, no acute intervention. PT/OT. Acute kidney injury: Admitting creatinine of 2.34, baseline creatinine around 1.25. Status post IV fluid. Resolved. Hypokalemia: Monitor and replete. Elevated BNP: BNP at 145. CXR w/ no congestion. Pt appears euvolemic. ECHO as above. Other chronic medical conditions: Continue with/resume home meds as and when able. hyperlipidemia, on statin Rx bronchial asthma, patient without pulmonary complaints mild HAYDEN (CPAP noncompliant) DM2 insulin requiring, well-controlled as of recent hemoglobin A1c of 6.9 last January 2024. A1c of 5.8 this admission. chronic anemia, hemoglobin at baseline mood disorder, stable past tobacco/alcohol abuse, patient tremulous at the ER, last EtOH intake as per patient/ was around 2 weeks ago, currently without concerns for alcohol abuse. DVT prophylaxis. Heparin subcu Full code Patient Ms. Francisca Lopez, contact #[phone]. Updated at bedside 05/17, 05/18, 05/19. Text document was generated using [employer] voice recognition software. It may contain grammatical or spelling errors. Kindly contact undersigned for clarification of any documentation item in question. Admission and Anticipated Discharge Date Admission Date: May 17, 2024 Subjective Patient was seen and examined at bedside. Patient was lying in bed, on room air, NAD, reports low back pain with moderate relief, reports occasional paresthesias ble. Patient denies febrile illness, any trouble controlling bowel or bladder habits, is eating okay, is moving bowels. Is ambulating in the room per pt's . Patient denies headache or chest pain or abdominal pain. Physical Exam Physical Exam: GENERAL: Slightly sleepy, obese, no respiratory distress SKIN: Normal color, warm HEENT: alopecia, bespectacled, pink palpebral conjunctivae, no ptosis, moist buccal mucosa NECK : Supple, no tenderness CHEST : CTA, no tenderness HEART : RRR, no obvious murmurs ABDOMEN: Some distention, nontender BACK : Minimal thoracolumbar tenderness, negative SLR EXTREMITIES : Minimal LE swelling, no LE tenderness, no other conspicuous deformities noted. SLRT negative. NEUROLOGIC : Coherent, no facial asymmetry, no other gross focality Results & Data Results & Data Vital Signs (Past 12 Hours) Vital Signs Temp Pulse Pulse Resp BP BP BP 05/19/24 11:06 36.8 C 98 H 18 154/101 H 05/19/24 09:13 93 H 05/19/24 07:30 37.0 C 94 H 19 151/100 H 05/19/24 04:23 167/102 H 05/19/24 03:29 92 H 198/121 H 05/19/24 02:44 100 H 181/111 H 05/19/24 02:32 36.5 C 100 H 20 181/111 H Pulse Ox O2 Del Method 05/19/24 11:06 98 Room Air 05/19/24 09:13 05/19/24 07:30 95 Room Air 05/19/24 04:23 05/19/24 03:29 05/19/24 02:44 05/19/24 02:32 96 Room Air
[2024-05-19 15:33] LABS: Lyme Screen Rflx Confirmation Positive (Negative)
[2024-05-19 16:07] LABS: Lyme Ab IgG 2nd Tier Confirm Positive (Negative); Lyme Ab IgM 2nd Tier Confirm Positive (Negative)
[2024-05-19] MEDS: carvediloL 6.25 MG TAB PO SCH (19:33)
[2024-05-19] MEDS: DOXYCYCLINE HYCLATE 100 MG CAP PO SCH (20:15)
[2024-05-19] MEDS: GABAPENTIN 100 MG CAP PO SCH (20:17)
[2024-05-20 07:12] LABS: Hematocrit (blood only) 38.8 % (42.0-52.0); Hemoglobin 13.8 g/dl (14.0-18.0); Mean Corpuscular Hemoglobin 30.8 pg (25.0-34.0); Mean Corpuscular Hgb Conc 35.6 g/dL (32.0-36.0); Mean Corpuscular Volume 86.6 fL (80.0-100.0); Mean Platelet Volume 9.3 fL (9.4-12.4); Platelet Count 190 K/uL (130-400); RDW Coefficient of Variation 13.1 % (11.5-14.5); RDW Standard Deviation 41.3 fL (36.4-46.3); Red Blood Count 4.48 M/uL (4.70-6.10)
[2024-05-20 07:30] LABS: BUN Creatinine Ratio 33.3 (10-20); Calcium 9.4 mg/dl (8.6-10.3); Creatinine Clr Calc Pharmacy 98.3 ml/min; Est GFR (African American) 94.8 ml/min; Est GFR (Non-African American) 81.8 ml/min; Magnesium 1.8 mg/dl (1.7-2.4); Phosphorus 3.9 mg/dl (2.5-4.9); Potassium 3.6 mmol/L (3.5-5.1)
[2024-05-20] MEDS: LANTUS PER UNIT CHARGE SQ SCH (09:21)
--- NOTE | 2024-05-20 14:22 | Hospitalist Progress Note ---
Date of Service May 20, 2024 Assessment & Plan (1) HTN (hypertension): Plan 58-year-old male with PMH of HTN, HLD, bronchial asthma, mild HAYDEN [CPAP noncompliant], T2DM insulin requiring, CKD [baseline creatinine 1.3], chronic anemia [baseline hemoglobin 13], LE venous stasis, mood disorder, past tobacco/alcohol abuse who was recently here in the ED about 10 days ago [employer] for back pain and BLE extremity edema/was started on Lasix with improvement in both back pain and BLE edema. There was concern of CHF as per PCP note. Few days ago [employer] patient had recurrence of mid to low back pain without radiation, denies trauma or heavy lifting or chest pain or shortness of breath or febrile illness. Patient reports compliance with home medications. Blood pressure noted to be 185/98 mmHg at presentation. He is being managed for the following: Acute back pain/groin pain- SLRT negative, afebrile, no vertebral tenderness or bowel bladder issues. Imagings and work up negative so far as below. Will get Xray hip/pelvis. Seen by pain management. No new recommendations. Continue gabapentin, oxycodone prn, flexeril. Follow up on Xray and PT OT eval. Lipase/TSH/ESR/CRP WNL. Admitting CTAP with no acute finding. Admitting CT chest with no acute finding. Admitting thoracic spine MRI with no acute finding L spine MRI w/ no acute finding. Admitting CPK of 632->36. UDS positive for opiates- patient reports using Tylenol w/ codeine pills from her [employer]GE[employer]. Hypertensive urgency- Improving, reports compliance with home medications [amlodipine, Lasix, hydrochlorothiazide, lisinopril]. Troponin flat trend around 30, EKG with NSR, no acute ST or T abnormality. Echo with mild concentric LVH, no regional wall motion abnormality, EF 50 to 55%, aortic root borderline dilated 3.8 cm. LV systolic fxn is normal. - Continue current medications, will monitor BP. Positive lyme screen- Lyme screen is now positive and on doxy pending confirmatory results. Will need to follow Acute kidney injury: resolved. Cr improved from 2.34->1.02. S/p IVF. T2DM with hyperglycemia- A1c 5.8. BG elevated this admission. Will adjust insulin/humalog and monitor. Continue carb controlled diet. Other chronic medical conditions: Continue with/resume home meds as and when able. hyperlipidemia, on statin Rx bronchial asthma, patient without pulmonary complaints mild HAYDEN (CPAP noncompliant) Chronic anemia, hemoglobin at baseline mood disorder, stable past tobacco/alcohol abuse, patient tremulous at the ER now resolved, last EtOH intake as per patient/ was around 2 weeks ago, currently without concerns for alcohol abuse. DVT prophylaxis- sc heparin Dispo- pending PT OT eval and xray reports. Anticipate discharge tomorrow if remains stable/improved. Updated at bedside Time spent- approx 35 mins Admission and Anticipated Discharge Date Admission Date: May 17, 2024 Subjective Patient was seen and examined at bedside. States still has pain in the groin and lower abdomen along with any movements, no worsening. Pain meds does help. No nausea, vomiting or chest pain or shortness of breath, fever or chills. Review of Systems Review of Systems: All systems reviewed & are unremarkable except as noted in Subjective Physical Exam Physical Exam: General: Lying comfortably in bed, not in distress, on room air HEENT: EOMI, CARMELO, MMM Chest: Clear breath sounds bilaterally, no wheezes or crackles CVS: Regular rate and rhythm, normal heart sounds, no murmur Abdomen: Soft, non tender, not distended, normal bowel sounds Neuro: Awake, alert, oriented, conversing well, non focal Extremities: No cyanosis, clubbing or edema Results & Data Results & Data Vital Signs (Past 12 Hours) Vital Signs Temp Pulse Pulse Resp BP BP BP 05/20/24 12:14 36.7 C 96 H 19 117/74 05/20/24 07:39 93 H 05/20/24 07:05 36.5 C 91 H 19 174/103 H 172/101 H 05/20/24 03:54 89 167/106 H 05/20/24 03:39 97 H 175/111 H 05/20/24 03:35 97 H 20 175/111 H 05/20/24 03:00 36.9 C 100 H 22 185/128 H Pulse Ox O2 Del Method 05/20/24 12:14 96 Room Air 05/20/24 07:39 05/20/24 07:05 94 Room Air 05/20/24 03:54 05/20/24 03:39 05/20/24 03:35 Room Air 05/20/24 03:00 96 Room Air Laboratory Results Short CBC 05/20/24 Range/Units 06:47 WBC 9.10 (4.8-10.8) K/ul Hgb 13.8 L (14.0-18.0) g/dl Hct 38.8 L (42.0-52.0) % Plt Count 190 (130-400) K/uL BMP 05/20/24 06:47 Sodium 136 Potassium 3.6 Chloride 97 L Carbon Dioxide 33 H BUN 34 H Creatinine 1.02 Glucose 229 H Calcium 9.4 Cardiac Enzymes 05/20/24 Range/Units 06:47 Total Creatine Kinase 36 (30-223) U/L Medications Administered Current Inpatient Medications Acetaminophen (Acetaminophen 325 Mg Tab) 650 mg PO Q6H [facility] Stop: 06/17/24 16:59 Last Admin: 05/20/24 10:58 Dose: 650 mg Amlodipine Besylate (Amlodipine Besylate 5 Mg Tab) 10 mg PO QAM [facility]CRU[facility] Stop: 06/18/24 08:59 Last Admin: 05/20/24 08:13 Dose: 10 mg Aspirin (Aspirin 81 Mg Ectab) 81 mg PO DAILY [facility] Stop: 06/16/24 08:59 Last Admin: 05/20/24 08:13 Dose: 81 mg Carvedilol (Carvedilol 12.5 Mg Tab) 12.5 mg PO BIDM [facility] Stop: 06/19/24 16:59 Cyclobenzaprine HCl (Cyclobenzaprine Hcl 5 Mg Tab) 5 mg PO TID [facility]CR[facility] Stop: 06/17/24 20:59 Last Admin: 05/20/24 13:44 Dose: 5 mg Dextrose (Dextrose 50% 50 Ml Syringe) 25 - 50 ml IV UD PRN; Protocol PRN Reason: Hypoglycemia Protocol Stop: 06/16/24 04:20 Doxycycline Hyclate (Doxycycline Hyclate 100 Mg Cap) 100 mg PO BID [facility] Stop: 05/29/24 20:59 Last Admin: 05/20/24 08:13 Dose: 100 mg Fluoxetine HCl (Fluoxetine Hcl 10 Mg Cap) 10 mg PO QAM [facility] Stop: 06/16/24 08:59 Last Admin: 05/20/24 08:13 Dose: 10 mg Furosemide (Furosemide 20 Mg Tab) 20 mg PO DAILY [facility]CRU[facility] Stop: 06/17/24 08:59 Last Admin: 05/20/24 08:12 Dose: 20 mg Gabapentin (Gabapentin 100 Mg Cap) 200 mg PO TID [facility] Stop: 06/18/24 20:59 Last Admin: 05/20/24 13:44 Dose: 200 mg Glucagon (Glucagon For Inj 1 Mg Vial) 1 mg SQ UD PRN; Protocol PRN Reason: Hypoglycemia Protocol Stop: 06/16/24 04:20 Glucose (Glucose 40% Gel 15 Gm Tube) 15 - 30 gm PO UD PRN; Protocol PRN Reason: Hypoglycemia Protocol Stop: 06/16/24 04:20 Glucose (Glucose 10 Tab/Tube) 4 - 8 tab PO UD PRN; Protocol PRN Reason: Hypoglycemia Treatment Stop: 06/16/24 04:20 Heparin Sodium (Porcine) (Heparin Sod 5,000 Unit/0.5 Ml Vial) 5,000 units SQ Q8 [facility] Stop: 06/16/24 05:59 Last Admin: 05/20/24 13:45 Dose: 5,000 units Hydrochlorothiazide (Hydrochlorothiazide 25 Mg Tab) 25 mg PO DAILY [facility] Stop: 06/17/24 08:59 Last Admin: 05/20/24 08:11 Dose: 25 mg Hydromorphone HCl (Hydromorphone Inj 0.5 Mg/0.5 Ml Syr) 0.5 mg IV Q6H PRN PRN Reason: Severe Pain (Scale 7, 8, 9,10) Stop: 05/31/24 15:48 Last Admin: 05/20/24 10:58 Dose: 0.5 mg Promethazine HCl 12.5 mg/ (Sodium Chloride) 50.5 mls @ 202 mls/hr IV Q6H PRN PRN Reason: Nausea And Vomiting Stop: 06/16/24 02:06 Lorazepam 0.5 mg/ Syringe 0.5 mls @ 2 mls/min IV Q4H PRN PRN Reason: Anxiety/Agitation Stop: 06/16/24 02:11 Last Admin: 05/18/24 12:27 Dose: 2 mls/min Insulin Aspart (Insulin Aspart Per Unit Charge) 0 units SC ACHS [facility] Stop: 06/16/24 04:20 Last Admin: 05/20/24 11:58 Dose: 10 units Insulin Glargine (Lantus Per Unit Charge) 55 units SQ DAILY [facility] Stop: 06/19/24 08:59 Last Admin: 05/20/24 09:21 Dose: Not Given Labetalol HCl (Labetalol Hcl Iv 5 Mg/Ml 20ml) 10 mg IV Q4H PRN PRN Reason: SBP > 170 mmHg Stop: 06/16/24 15:49 Last Admin: 05/20/24 03:39 Dose: 10 mg Lisinopril (Lisinopril 40 Mg Tab) 40 mg PO HS [facility] Stop: 06/16/24 20:59 Last Admin: 05/19/24 20:19 Dose: 40 mg Melatonin (Melatonin 3 Mg Tab) 6 mg PO HS PRN PRN Reason: Sleep Stop: 06/16/24 03:19 Last Admin: 05/19/24 20:16 Dose: 6 mg Miscellaneous (Carbohydrates For Hypoglycemia ) 15 - 30 gm PO UD PRN PRN Reason: Hypoglycemia Protocol Stop: 06/16/24 04:20 Oxycodone HCl (Oxycodone Hcl Ir 5 Mg Tab (Immediate Release)) 5 - 10 mg PO QID PRN PRN Reason: Pain Stop: 05/31/24 04:50 Last Admin: 05/20/24 08:19 Dose: 10 mg Polyethylene Glycol (Polyethylene (Miralax) 17 Gm Pack) 17 gm PO DAILY [facility] Stop: 06/17/24 09:59 Last Admin: 05/20/24 08:13 Dose: 17 gm Senna/Docusate Sodium (Docusate Sodium/Senna 50/8.6mg Tab) 1 tab PO QAM [facility] Stop: 06/17/24 09:59 Last Admin: 05/20/24 08:14 Dose: 1 tab
--- NOTE | 2024-05-20 14:33 | XRay Report ---
SINGLE VIEW PELVIS; 2 VIEWS RIGHT HIP; 2 VIEWS LEFT HIP CLINICAL HISTORY: Bilateral hip and groin pain. FINDINGS: An AP view of the pelvis with AP and frog-leg views of the right and left hips are obtained . Correlation is made with pelvic CT dated 05/17/2024. The skeletal structures are well-mineralized. T here is no radiographic evidence of acute fracture involving the hips or bony pelvis. Mild arthritic change is seen in the hips. There is mild degenerative sclerosis of the sacroiliac joints. The overly ing soft tissues are within normal limits. A phlebolith is again seen in the right hemipelvis. IMPRESSION: No acute bony abnormality is identified. Electronically signed by: Luc Cao M.D. 05/20/2024 2:32 PM
[2024-05-20] MEDS: carvediloL 12.5 MG TAB PO SCH (16:48)
[2024-05-21] MEDS: methylPREDNISolone 40 MG in SYRINGE 0 ML IV SCH (16:41)
[2024-05-21] MEDS ORDERED: methylPREDNISolone 40 MG in SYRINGE 0 ML IV SCH (21:00)
[2024-05-22 07:42] LABS: BUN Creatinine Ratio 41.9 (10-20); Calcium 9.6 mg/dl (8.6-10.3); Creatinine Clr Calc Pharmacy 85.8 ml/min; Est GFR (African American) 80.3 ml/min; Est GFR (Non-African American) 69.3 ml/min; Phosphorus 4.3 mg/dl (2.5-4.9); Potassium 4.2 mmol/L (3.5-5.1)
[2024-05-22 09:08] LABS: Ehrlichia chaff DNA Bld Negative (Negative)
[2024-05-22] MEDS: ENOXAPARIN INJ 40 MG/0.4 ML SYR SQ SCH (09:10)
[2024-05-22] MEDS: carvediloL 25 MG TAB PO SCH (09:10)
--- NOTE | 2024-05-22 16:59 | Discharge Summary ---
Date of Service May 22, 2024 Admission HPI Per Admitting Provider History obtained from patient, family, and records. Medical history significant for hypertension, hyperlipidemia, bronchial asthma, mild HAYDEN (CPAP noncompliant), DM2 insulin requiring, CRI (baseline creatinine 1.3), chronic anemia (baseline hemoglobin of 13), history LE venous stasis, mood disorder, past tobacco/alcohol abuse. Recent ER visit 10 days ago for back pain associated with bilateral lower extremity edema of 2 weeks duration.. Patient hypertensive at the ER. BNP elevated. Patient given Lasix for peripheral edema. Additional Lasix course prescribed at home from PCPs office which improved swelling. Concern for CHF as per PCP note. Back pain transiently improved. Few days ago patient had recurrence of mid to low back pain without radiation. No unusual headache symptoms. Denies recent trauma or exertion. Denies recent EtOH intake. Denies chest pain or SOB. Transient confusion at home due to uncontrolled pain as per patient. Patient not sleeping well. Claims to be compliant with medications. Highest SBP of 200s documented at the ER. Medical History as above Surgical History : Pilonidal cyst removal Family History : Heart disease, stomach cancer, DM Personal/Social history : Past tobacco/alcohol abuse, refrigeration work Admission Exam Per Admitting Provider GENERAL: Slightly uncomfortable, obese, tremulous, no respiratory distress SKIN: Normal color, warm HEENT: alopecia, bespectacled, pink palpebral conjunctivae, no ptosis, dry buccal mucosa NECK : Supple, no tenderness CHEST : CTA, no tenderness HEART : RRR, no obvious murmurs ABDOMEN: Some distention, nontender BACK : Minimal thoracolumbar tenderness, negative SLR EXTREMITIES : Minimal LE swelling, no LE tenderness, no other conspicuous deformities noted NEUROLOGIC : Coherent, no facial asymmetry, tremulous, no other gross focality Principal Diagnosis Hypertensive urgency, SHAHRIAR, Intractable low back pain, Positive lyme screen Discharge Exam General: Lying comfortably in bed, not in distress, on room air HEENT: EOMI, CARMEOL, MMM Chest: Clear breath sounds bilaterally, no wheezes or crackles CVS: Regular rate and rhythm, normal heart sounds, no murmur Abdomen: Soft, non tender, not distended, normal bowel sounds Neuro: Awake, alert, oriented, conversing well, non focal Extremities: No cyanosis, clubbing or edema Discharge Data Allergies Allergy/AdvReac Type Severity Reaction Status Date / Time Penicillins Allergy Intermediate SWELLING Verified 05/07/24 16:34 OF FACE Consultations 05/17/24 01:34 ED Decision to Admit Stat 05/17/24 14:00 Consult Pain Management Routine Ordered Studies 05/17/24 02:05 CT Abd and Pelvis [CT abd pelvis wo con] Stat CT chest diagnostic wo con Stat 05/17/24 05:27 MRI Thoracic [MR thoracic spine wo con] Urgent 05/17/24 18:18 CT head/brain wo con Routine 05/18/24 05:27 MR lumbar spine wo con Urgent Laboratory Results WBC 9.10 K/ul (4.8-10.8) 05/20/24 06:47 RBC 4.48 M/uL (4.70-6.10) L 05/20/24 06:47 Hgb 13.8 g/dl (14.0-18.0) L 05/20/24 06:47 Hct 38.8 % (42.0-52.0) L 05/20/24 06:47 MCV 86.6 fL (80.0-100.0) 05/20/24 06:47 MCH 30.8 pg (25.0-34.0) 05/20/24 06:47 MCHC 35.6 g/dL (32.0-36.0) 05/20/24 06:47 RDW Std Deviation 41.3 fL (36.4-46.3) 05/20/24 06:47 RDW Coeff of Garcia 13.1 % (11.5-14.5) 05/20/24 06:47 Plt Count 190 K/uL (130-400) 05/20/24 06:47 MPV 9.3 fL (9.4-12.4) L 05/20/24 06:47 Immature Gran % (Auto) 0.8 % 05/17/24 05:59 Neut % (Auto) 73.9 % 05/17/24 05:59 Lymph % (Auto) 14.0 % 05/17/24 05:59 [place] % (Auto) 8.7 % 05/17/24 05:59 Eos % (Auto) 1.5 % 05/17/24 05:59 Baso % (Auto) 1.1 % 05/17/24 05:59 Neut # (Auto) 4.92 K/uL (1.40-6.50) 05/17/24 05:59 Lymph # (Auto) 0.93 K/uL (1.20-3.40) L 05/17/24 05:59 [place] # (Auto) 0.58 K/uL (0.11-0.59) 05/17/24 05:59 Eos # (Auto) 0.10 K/uL (0.00-0.50) 05/17/24 05:59 Baso # (Auto) 0.07 K/uL (0.00-0.20) 05/17/24 05:59 Immature Gran # (Auto) 0.05 K/uL (0.01-0.20) 05/17/24 05:59 ESR 11 mm/hr (0-20) 05/17/24 02:48 PT 10.2 Seconds (9.0-12.0) 05/16/24 22:54 INR 0.9 (0.9-1.1) 05/16/24 22:54 APTT 30 Seconds (21-31) 05/16/24 22:54 PTT Ratio 1.1 05/16/24 22:54 Sodium 135 mmol/L (136-145) L 05/22/24 05:59 Potassium 4.2 mmol/L (3.5-5.1) 05/22/24 05:59 Chloride 97 mmol/L (98-107) L 05/22/24 05:59 Carbon Dioxide 32 mmol/L (21-32) 05/22/24 05:59 Anion Gap 6 (3-11) 05/22/24 05:59 BUN 49 mg/dl (6-23) H 05/22/24 05:59 Creatinine 1.17 mg/dl (0.6-1.4) 05/22/24 05:59 Est Cr Clr Drug Dosing 85.8 ml/min 05/22/24 05:59 Est GFR ( Amer) 80.3 ml/min 05/22/24 05:59 Est GFR (Non-Af Amer) 69.3 ml/min 05/22/24 05:59 BUN/Creatinine Ratio 41.9 (10-20) H 05/22/24 05:59 Glucose 239 mg/dl (70-99(Fasting)) H 05/22/24 05:59 POC Glucose 120 mg/dl (70-99) H 05/22/24 16:25 Estimat Average Glucose 120 mg/dl 05/16/24 22:45 Hemoglobin A1c 5.8 % (4.5-5.6) H 05/16/24 22:45 Calcium 9.6 mg/dl (8.6-10.3) 05/22/24 05:59 Phosphorus 4.3 mg/dl (2.5-4.9) 05/22/24 05:59 Magnesium 2.0 mg/dl (1.7-2.4) 05/22/24 05:59 Total Bilirubin 0.6 mg/dl (0.2-1.0) 05/16/24 22:45 AST 44 U/L (13-39) H 05/16/24 22:45 ALT 42 U/L (7-52) 05/16/24 22:45 Alkaline Phosphatase 53 U/L (34-104) 05/16/24 22:45 Total Creatine Kinase 36 U/L (30-223) 05/20/24 06:47 Troponin I High Sens 29.9 pg/ml (0-20) H 05/17/24 02:48 C-Reactive Protein < 0.50 mg/dl (0-0.5) 05/17/24 02:48 Total Protein 6.3 gm/dl (6.0-8.3) 05/16/24 22:45 Albumin 3.8 gm/dl (3.4-5.0) 05/16/24 22:45 Globulin 2.5 gm/dl (2.5-4.0) 05/16/24 22:45 Albumin/Globulin Ratio 1.5 (0.9-2) 05/16/24 22:45 Lipase 29 U/L (11-82) 05/16/24 22:45 TSH 0.902 uIu/ml (0.300-4.500) 05/16/24 22:45 Urine Color Yellow 05/17/24 00:05 Urine Appearance Cloudy (Clear) A 05/17/24 00:05 Urine pH 5.5 (4.5-7.5) 05/17/24 00:05 Ur Specific [place] 1.030 (1.000-1.030) 05/17/24 00:05 Urine Protein 4+ (Negative) H 05/17/24 00:05 Urine Glucose (UA) Trace (Negative) H 05/17/24 00:05 Urine Ketones Trace (Negative) H 05/17/24 00:05 Urine Blood 1+ (Negative) H 05/17/24 00:05 Urine Nitrite Negative (Negative) 05/17/24 00:05 Urine Bilirubin Negative (Negative) 05/17/24 00:05 Urine Urobilinogen Negative (Negative) 05/17/24 00:05 Ur Leukocyte Esterase Negative (Negative) 05/17/24 00:05 Urine WBC (Auto) 6-10 /hpf (0-5) H 05/17/24 00:05 Urine RBC (Auto) 0-2 /hpf (0-2) 05/17/24 00:05 U Hyaline Cast (Auto) >20 /lpf (0-2) H 05/17/24 00:05 U Epithel Cells (Auto) >20 /hpf (0-2) H 05/17/24 00:05 Urine Bacteria (Auto) None Seen (None Seen) 05/17/24 00:05 Ur Renal Epithelial Cell Present /lpf (None Presnt) A 05/17/24 00:05 WBC Casts Present /lpf (None Prsent) A 05/17/24 00:05 Urine Opiates Screen Pos (Neg) H 05/17/24 00:05 U Codeine Confrm GC/MS NEGATIVE ng/mL (<50) 05/17/24 00:05 Ur Morphine (GC/MS) NEGATIVE ng/mL (<50) 05/17/24 00:05 Ur Hydrocodone (GC/MS) 272 ng/mL (<50) H 05/17/24 00:05 Ur Norhydrocodone 194 ng/mL (<50) H 05/17/24 00:05 Ur Noroxycodone NEGATIVE ng/mL (<50) 05/17/24 00:05 Urine Oxycodone (GC/MS) NEGATIVE ng/mL (<50) 05/17/24 00:05 U Oxymorphone GC/MS NEGATIVE ng/mL (<50) 05/17/24 00:05 Ur Methadone, Qual Neg (Neg) 05/17/24 00:05 Ur Hydromorphone (GC/MS) NEGATIVE ng/mL (<50) 05/17/24 00:05 Urine Fentanyl Screen Neg (Neg) 05/17/24 00:05 Urine Barbiturates Neg (Neg) 05/17/24 00:05 Ur Phencyclidine (PCP) Neg (Neg) 05/17/24 00:05 U Amphetamin/Meth Scrn Neg (Neg) 05/17/24 00:05 MDMA (Ecstasy) Screen Neg (Neg) 05/17/24 00:05 U Benzodiazepines Scrn Neg (Neg) 05/17/24 00:05 Ur Cocaine Metabolite Neg (Neg) 05/17/24 00:05 U Marijuana (THC) Screen Neg (Neg) 05/17/24 00:05 Drug Screen Comment SEE NOTE 05/17/24 00:05 Ethyl Alcohol mg/dL < 10.0 mg/dl (<10.0) 05/16/24 22:54 Adenovirus (PCR) Not Detected (NotDetected) 05/16/24 23:04 Anaplasma Smear See Comment 05/20/24 06:47 Babesia Smear See Comment 05/20/24 06:47 B. pertussis DNA (PCR) Not Detected (NotDetected) 05/16/24 23:04 B.parapertussis DNA PCR Not Detected (NotDetected) 05/16/24 23:04 Lyme Disease Screen Positive (Negative) H 05/19/24 14:21 Lyme Tier 2 IgG Confirm Positive (Negative) H 05/19/24 14:21 Lyme Tier 2 IgM Confirm Positive (Negative) H 05/19/24 14:21 C. pneumoniae DNA (PCR) Not Detected (NotDetected) 05/16/24 23:04 Coronavirus OC43 (PCR) Not Detected (NotDetected) 05/16/24 23:04 Coronavirus HKU1 (PCR) Not Detected (NotDetected) 05/16/24 23:04 Coronavirus 229E (PCR) Not Detected (NotDetected) 05/16/24 23:04 SARS-CoV-2 (PCR) Not Detected (NotDetected) 05/16/24 23:04 Coronavirus NL63 (PCR) Not Detected (NotDetected) 05/16/24 23:04 E.chaffeensis DNA (PCR) Negative (Negative) 05/19/24 14:21 Human Metapneumovir PCR Not Detected (NotDetected) 05/16/24 23:04 Influenza Type A (PCR) Not Detected (NotDetected) 05/16/24 23:04 Influenza Type B (PCR) Not Detected (NotDetected) 05/16/24 23:04 M. pneumoniae (PCR) Not Detected (NotDetected) 05/16/24 23:04 Parainfluenza 1 (PCR) Not Detected (NotDetected) 05/16/24 23:04 Parainfluenza 2 (PCR) Not Detected (NotDetected) 05/16/24 23:04 Parainfluenza 3 (PCR) Not Detected (NotDetected) 05/16/24 23:04 Parainfluenza 4 (PCR) Not Detected (NotDetected) 05/16/24 23:04 RSV (PCR) Not Detected (NotDetected) 05/16/24 23:04 Entero/Rhino (PCR) Not Detected (NotDetected) 05/16/24 23:04 Impressions Chest X-Ray 05/17/24 01:31 XR chest 1V portable CLINICAL HISTORY: renal failure TECHNIQUE: Single frontal radiograph of the chest was obtained. Comparison: Comparison is made to chest radiograph 05/07/2024 FINDINGS: No lines and tubes are seen. The cardiomediastinal silhouette is stable. The lungs are clear. No evidence of pleural effusion or pneumothorax. IMPRESSION: No acute chest disease. ACT 112: Negative or not required by law. Electronically signed by: Waylon Fernández M.D. 05/17/2024 7:19 AM Abdomen/Pelvis CT 05/17/24 02:05 Exam(s): CT ABDOMEN + PELVIS Without Contrast EXAM: CT Abdomen and Pelvis Without Intravenous Contrast CLINICAL HISTORY: Reason for exam: back pain. TECHNIQUE: Axial computed tomography images of the abdomen and pelvis without intravenous contrast. CTDI is 27.95 mGy and DLP is 2494.84 mGy-cm. Automated exposure control was utilized for the study. A dose lowering technique was utilized adhering to the principles of ALARA. COMPARISON: CT abdomen and pelvis May 07, 2024. FINDINGS: Lung bases: Unremarkable. No mass. No consolidation. ABDOMEN: Liver: Unremarkable. Gallbladder and bile ducts: Unremarkable. No calcified stones. No ductal dilation. Pancreas: Unremarkable. No ductal dilation. Spleen: Enlarged spleen, measures 17 cm. Adrenals: Unremarkable. No mass. Kidneys and ureters: No hydronephrosis, nephrolithiasis, or obstructive uropathy. Trace, stable bilateral perinephric stranding. Stomach and bowel: Diverticulosis, without acute diverticulitis. No small bowel obstruction. No free intraperitoneal air. PELVIS: Appendix: No findings to suggest acute appendicitis. Bladder: Unremarkable. No stones. Reproductive: Unremarkable as visualized. ABDOMEN and PELVIS: Intraperitoneal space: Unremarkable. No free air. No significant fluid collection. Bones/joints: Degenerative changes of the spine. No acute fracture. No dislocation. Soft tissues: Unremarkable. Vasculature: Atherosclerotic changes of the aorta. No abdominal aortic aneurysm. Lymph nodes: Unremarkable. No enlarged lymph nodes. IMPRESSION: 1. No hydronephrosis, nephrolithiasis, or obstructive uropathy. Trace, stable bilateral perinephric stranding. 2. Diverticulosis, without acute diverticulitis. No small bowel obstruction. No free intraperitoneal air. Electronically signed by: Manuel Castañeda MD 05/17/24 04:[address] 05/17/24 02:05 Exam(s): CT CHEST Without Contrast EXAM: CT Chest Without Intravenous Contrast CLINICAL HISTORY: Reason for exam: back pain. TECHNIQUE: Axial computed tomography images of the chest without intravenous contrast. CTDI is 27.95 mGy and DLP is 2494.84 mGy-cm. Automated exposure control was utilized for the study. A dose lowering technique was utilized adhering to the principles of ALARA. COMPARISON: No relevant prior studies available. FINDINGS: LUNGS: No focal consolidation, pleural effusion, or pneumothorax. HEART: Within normal limits. VASCULATURE: Within normal limits without contrast. THYROID: Within normal limits. MEDIASTINUM + LYMPH NODES: There are no pathologically enlarged mediastinal, hilar, or axillary lymph nodes. SUPERIOR ABDOMEN: The included portions of the superior abdomen are within normal limits. MUSCULOSKELETAL: Within normal limits. IMPRESSION: No focal infiltrate, pleural effusion, or pneumothorax. Electronically signed by: Manuel Castañeda MD 05/17/24 04:00 AM Thoracic Spine MRI 05/17/24 05:27 MR thoracic spine wo con CLINICAL HISTORY: back pain TECHNIQUE: Multiplanar sequences through the thoracic spine were obtained, without intravenous contrast. Comparison: Comparison is made to CT chest 05/17/2024 FINDINGS: Exam is highly limited by patient motion. The alignment is anatomical. Disks are normal in height and signal. The spinal canal and neural foramina are patent. The spinal ligaments are intact, without evidence of disruption or abnormal signal intensity. The spinal cord is normal in signal intensity and there is no evidence of cord contusion. There is no evidence of an extradural, intradural, extramedullary or intramedullary lesion. Visualized soft tissues are normal. IMPRESSION: Highly limited exam due to patient motion. No significant canal stenosis and no acute abnormalities are seen. ACT 112: Negative or not required by law. Electronically signed by: Waylon Fernández M.D. 05/17/2024 12:[address] 05/17/24 18:18 Exam(s): CT HEAD Without Contrast EXAM: CT Head Without Intravenous Contrast CLINICAL HISTORY: Reason for exam: fall about a week ago per family.. TECHNIQUE: Axial computed tomography images of the head/brain without intravenous contrast. CTDI is 35.65 mGy and DLP is 624.41 mGy-cm. Automated exposure control was utilized for the study. A dose lowering technique was utilized adhering to the principles of ALARA. COMPARISON: No relevant prior studies available. FINDINGS: Brain: Unremarkable. No hemorrhage. Mild nonspecific white matter changes. No edema. Ventricles: Unremarkable. No ventriculomegaly. Bones/joints: Unremarkable. No acute fracture. Soft tissues: Mild soft tissue swelling over the forehead and left lateral scalp. Sinuses: Unremarkable as visualized. No acute sinusitis. Mastoid air cells: Unremarkable as visualized. No mastoid effusion. IMPRESSION: No evidence of acute intercranial pathology. Electronically signed by: Suzy Rockwell MD 05/17/24 23:43 PM Lumbar Spine MRI 05/18/24 05:27 MR lumbar spine wo con CLINICAL HISTORY: back pain TECHNIQUE: Multiplanar sequences through the lumbar spine were obtained, without intravenous contrast. Comparison: None available at the time of this dictation. FINDINGS: The alignment is anatomical. L1-L2: No significant abnormality. L2-L3: No significant abnormality. L3-L4: No significant abnormality. L4-L5: Broad-based posterior disc bulge is seen with mild canal stenosis and no significant neuroforaminal stenosis. L5-S1: No significant abnormality. The spinal ligaments are intact, without evidence of disruption or abnormal signal intensity. The spinal cord is normal in signal intensity and there is no evidence of cord contusion. There is no evidence of an extradural, intradural, extramedullary or intramedullary lesion. Visualized soft tissues are normal. IMPRESSION: Mild degenerative changes without significant neuroforaminal stenosis. ACT 112: Negative or not required by law. Electronically signed by: Waylon Fernández M.D. 05/18/2024 2:21 PM Hip/Pelvis X-Ray 05/20/24 10:48 SINGLE VIEW PELVIS; 2 VIEWS RIGHT HIP; 2 VIEWS LEFT HIP CLINICAL HISTORY: Bilateral hip and groin pain. FINDINGS: An AP view of the pelvis with AP and frog-leg views of the right and left hips are obtained. Correlation is made with pelvic CT dated 05/17/2024. The skeletal structures are well-mineralized. There is no radiographic evidence of acute fracture involving the hips or bony pelvis. Mild arthritic change is seen in the hips. There is mild degenerative sclerosis of the sacroiliac joints. The overlying soft tissues are within normal limits. A phlebolith is again seen in the right hemipelvis. IMPRESSION: No acute bony abnormality is identified. Electronically signed by: Luc Cao M.D. 05/20/2024 2:32 PM Hospital Course (1) Asymptomatic hypertensive urgency: (2) Low back pain: (3) Positive Lyme disease serology: (4) SHAHRIAR (acute kidney injury): Plan Acute low back pain/groin pain- SLRT negative, afebrile, no vertebral tenderness or bowel bladder issues. Imagings and work up negative so far as below. Seen by pain management. No new recommendations. Pain significantly improved since yesterday evening after initiating iv steroids yesterday. He is ambulating independently in the room without any issues. Denies any concern for discharge home. Will discharge on 5 day of prednisone along with 10 pills of prn oxycodone, prn flexeril, gabapentin which he was getting here. PDMP reviewed- no red flag signs noted. Recommended not to drive under the influence of these medications. Follow up with PCP for further management. Work up Lipase/TSH/ESR/CRP WNL. Admitting CTAP with no acute finding. Admitting CT chest with no acute finding. Admitting thoracic spine MRI with no acute finding L spine MRI w/ no acute finding. Xray hip/pelvis with no acute abnormality. Admitting CPK of 632->36. UDS positive for opiates- patient reports using Tylenol w/ codeine pills from her [employer]. Hypertensive urgency- resolved with medication adjustment. Reports compliance with home medications [amlodipine, Lasix, hydrochlorothiazide, lisinopril]. Troponin flat trend around 30, EKG with NSR, no acute ST or T abnormality. Echo with mild concentric LVH, no regional wall motion abnormality, EF 50 to 55%, aor tic root borderline dilated 3.8 cm. LV systolic fxn is normal. - Added coreg for better control of blood pressure. Follow up with PCP for further management. Positive lyme screen- Lyme screen is positive and on doxy for possible lyme disease pending confirmatory results. Discharging on doxy with recommendations to follow up with the PCP for final results for further management. Acute kidney injury: resolved. Cr improved from 2.34->1.1. S/p IVF. T2DM with hyperglycemia- A1c 5.8. BG elevated this admission and now improved with insulin adjustment. Continue home meds at discharge. Expect some hyperglycemia with steroids but it is only a short course. Follow up with PCP for further management. Other chronic medical conditions: hyperlipidemia, on statin Rx bronchial asthma, patient without pulmonary complaints mild HAYDEN (CPAP noncompliant) Chronic anemia, hemoglobin at baseline mood disorder, stable Total Time Total Time Spent Total Time Spent (In Minutes): 40 Discharge Plan Discharge Items Patient Disposition: Home - Self-Care Reason For Visit: HTN URG, ARF Discharge Diagnosis: Hypertensive urgency, SHAHRIAR, Intractable low back pain, Positive lyme screen Activity: Resume your previous activity Non-emergency contact: Primary Care Provider Call non-emergency contact if: you have any medication questions, your symptoms worsen, your pain is not controlled and you have a fever Follow-up/Referrals: Joseline Lombardo DO [Primary Care Provider] - (Date & Time 05/22/2024 8:20 AM Provider Birdie Mora MD Department Family [facility] ) Diet: Carb Consistent or DM2 Addtl Attending Provider Instructions: Continue doxycycline for possible lyme disease and follow up with the family doctor with the final results to determine if doxycycline need to be continued Continue the pain medicines as needed Follow up with the family doctor Pending Studies at Discharge: Yes (Western blot) Stand-Alone Forms: [employer], Smoking Cessation Medications and DC Order Prescriptions: New carvedilol 25 mg Tablet 25 mg PO BIDM Qty: 30 0RF doxycycline hyclate 100 mg Capsule 100 mg PO BID 14 Days Qty: 28 0RF cyclobenzaprine 5 mg Tablet 5 mg PO TID PRN (Reason: muscle spasm) 4 Days Qty: 10 0RF prednisone 50 mg tablet 50 mg PO DAILY 5 Days Qty: 5 0RF oxycodone 10 mg tablet 10 mg PO TID PRN (Reason: pain) 4 Days Qty: 10 0RF Rx Instructions: take 1/2 to 1 tab as needed for moderate to severe pain gabapentin 300 mg capsule 300 mg PO BID 10 Days Qty: 20 0RF Continued insulin glargine [Lantus U-100 Insulin] 100 unit/mL Solution 60 unit SUBCUT QAM atorvastatin 10 mg tablet 10 mg PO DAILY Rx Instructions: PER DR 1ST, ONLY GETTING 10 MG DAILY metformin 1,000 mg tablet 1,000 mg PO BIDM Rx Instructions: TAKE WITH AM & PM MEALS hydrochlorothiazide 25 mg tablet 25 mg PO DAILY lisinopril 40 mg tablet 40 mg PO DAILY Ozempic 1 mg/dose (4 mg/3 mL) pen injector 1 mg SUBCUT WK Rx Instructions: SAT aspirin [Aspir-Low] 81 mg Tablet,Delayed Release (Dr/Ec) 81 mg PO DAILY fluoxetine 10 mg capsule 10 mg PO QAM furosemide [Lasix] 20 mg Tablet 20 mg PO DAILY albuterol sulfate 90 mcg/actuation HFA aerosol inhaler 2 puff INHALATION Q4 PRN (Reason: Shortness Of Breath Or Wheezing) Changed amlodipine 5 mg Tablet 10 mg PO DAILY Qty: 0 0RF Discharge Orders: Discharge Order (Routine); Ordered 05/22/24 Ordered By: Brown Van Admission Data Admit Date/Time: 05/17/24 02:10 Attending Provider: Brown Van Admit Provider: Marcial Barrientos Primary Care Provider: Joseline Lombardo Other Providers: Marcial Barrientos; Lachelle Maradiaga
[2024-05-26 16:27] LABS: Babesia microti DNA Not Detected (Not Detected)
== END 2024-05-22 17:56 | disposition home or self-care (01) | DRG 305 ==
LOC: ED 22:38 → 2E 05-17 02:10 → SUATTDRO 05-17 02:10 → 2E 05-17 04:04